=== PATIENT | female | born 1980 | race Caucasian/White ===

== ENCOUNTER 2023-03-22 13:24 | Outpatient (CLI) | payer OTHER, SELFPAY ==
--- NOTE | ~2023-03-22 | MR_ITS ---
EXAMINATION: MR pituitary wo/w con DATE: 03/22/2023 14:30 INDICATION: Hyperprolactinemia. TECHNIQUE: Magnetic resonance imaging (MRI) of the brain and brainstem was performed without and with 15 mL MultiHance intravenous contrast. COMPARISON: None. FINDINGS: The pituitary is normal in size with height of 4 mm and concave superior margin. There is n o intracranial hemorrhage or acute infarction. There are scattered areas of nonspecific increased T2- weighted signal intensity in the cerebral white matter. A lesion in the deep right parietal white mat ter enhances. There is increased T2-weighted signal intensity in the medulla on the right. The ventri cles are normal in size. The orbits are normal. The paranasal sinuses are clear. The mastoid air cell s are normal. IMPRESSION: 1. Normal pituitary. 2. Cerebral white matter lesions (including an enhancing lesion) and brainstem lesion suspicious for multiple sclerosis. The differential diagnosis also includes subacute right parietal infract with whi te matter disease secondary to premature chronic small vessel ischemic disease, drug abuse, or vascul itis. Reviewed, dictated and finalized at location E. IMPRESSION: 1. Normal pituitary. 2. Cerebral white matter lesions (including an enhancing lesion) and brainstem lesion suspicious for multiple sclerosis. The differential diagnosis also inclu griselda subacute right parietal infract with white matter disease secondary to priscilla ature chronic small vessel ischemic disease, drug abuse, or vasculitis.
== END 2023-03-22 13:25 | disposition home or self-care (01) ==
PROVIDERS: PCP Registered Nurse; Visit Provider Internal Medicine
DX: E22.1 Hyperprolactinemia (principal); R90.82 White matter disease, unspecified
CPT/HCPCS: 70553; A9577

== ENCOUNTER 2023-04-20 07:29 | Outpatient (CLI) | payer OTHER, SELFPAY ==
--- NOTE | ~2023-04-20 | MR_ITS ---
EXAMINATION: MR cervical spine wo/w con DATE: 04/20/2023 09:24 INDICATION: Multiple sclerosis. Left-sided numbness. TECHNIQUE: Magnetic resonance imaging (MRI) of the cervical spine was performed without and with 16 m L MultiHance intravenous contrast. COMPARISON: None FINDINGS: There is 2 mm retrolisthesis of C5 on C6. Vertebral body heights are normal. There is moder ately decreased disc height at C5-C6. The spinal cord signal intensity is normal. The following disc levels are specifically discussed: C2-C3: The disc does not extend beyond the endplate margin. There is no uncovertebral joint osteoarth ritis. There is mild bilateral facet joint osteoarthritis. There is no neural foraminal stenosis. The re is no central canal stenosis. C3-C4: There is a right central protrusion. There is no uncovertebral joint osteoarthritis. There is moderate bilateral facet joint osteoarthritis. There is mild left neural foraminal stenosis. There is mild central canal stenosis. C4-C5: The disc is bulging. There is mild bilateral uncovertebral joint osteoarthritis. There is mode rate bilateral facet joint osteoarthritis. There is mild left neural foraminal stenosis. There is mil d central canal stenosis. C5-C6: The disc is bulging. There is severe bilateral uncovertebral joint osteoarthritis. There is mi ld bilateral facet joint osteoarthritis. There is mild bilateral neural foraminal stenosis. There is mild central canal stenosis. C6-C7: The disc does not extend beyond the endplate margin. There is mild left uncovertebral joint os teoarthritis. There is severe bilateral facet joint osteoarthritis. There is mild bilateral neural fo raminal stenosis. There is no central canal stenosis. C7-T1: The disc does not extend beyond the endplate margin. There is no uncovertebral joint osteoarth ritis. There is moderate right and mild left facet joint osteoarthritis. There is no neural foraminal stenosis. There is no central canal stenosis. IMPRESSION: 1. Normal spinal cord. 2. Moderate spondylosis at C5-C6 and mild spondylosis at other levels. Reviewed, dictated and finalized at location A. TANNER
--- NOTE | ~2023-04-20 | MR_ITS ---
EXAMINATION: MR orbits face neck wo/w con DATE: 04/20/2023 09:24 INDICATION: Multiple sclerosis. TECHNIQUE: Magnetic resonance imaging (MRI) of the orbits was performed without and with 16 mL MultiH ance intravenous contrast. COMPARISON: Brain MRI 03/22/2023 FINDINGS: There are greater than 20 total lesions of increased T2-weighted signal intensity in the br ain. Of these lesions, approximately 2 are periventricular, multiple are juxtacortical, and 1 is infr atentorial. None of the lesions enhance. There is no intracranial hemorrhage or acute ischemic infarc t. The ventricles are normal in size. There is mild mucosal thickening in the ethmoid sinuses. The oc ular globes, optic nerves, optic chiasm are normal. The extraocular muscles are normal. IMPRESSION: 1. Normal orbits. 2. Mild nonspecific cerebral white matter disease, stable from 03/22/23. The differential diagnosis includes premature chronic small vessel ischemic disease (especially if the patient has cardiovascula r risk factors), demyelinating disease such as multiple sclerosis, drug abuse, vasculitis, or reactiv e astrocytosis (gliosis) secondary to nonspecific etiology. Reviewed, dictated and finalized at location A. HER TEACHER IMPRESSION: 1. Normal orbits. 2. Mild nonspecific cerebral white matter disease, stable from 03/22/23. The d ifferential diagnosis includes premature chronic small vessel ischemic disease (especially if the patient has cardiovascular risk factors), demyelinating dise ase such as multiple sclerosis, drug abuse, vasculitis, or reactive astrocytosi s (gliosis) secondary to nonspecific etiology.
--- NOTE | ~2023-04-20 | MR_ITS ---
MRI of the thoracic spine Clinical History: Multiple sclerosis Technique: Axial T2-weighted and gradient images, and sagittal T1-weighted, T2-weighted, and STIR emelia ges were acquired. Following intravenous administration of 16 cc MultiHance gadolinium, T1-weighted f at-sat imaging was performed in the axial and sagittal planes. Findings: There is no fracture or subluxation of the thoracic spine. Vertebral bodies maintain normal height and alignment. No suspicious bone marrow signal abnormality seen. No significant disc bulge or herniation seen at any thoracic level. No spinal canal stenosis or cord compression identified. No epidural mass or collection seen. There is a small hyperintense cord lesion on the right side of the cord at the T10-T11 level (series 26 image 33). There is suspected focal associated postcontrast enhancement of this lesion (series 29 image 55). No other spinal cord lesion or abnormal postcontrast enhancement seen. Paravertebral soft tissues are unremarkable. Impression: Single demyelinating plaque in the right side of the cord at T10-T11 level, with probable focal postc ontrast enhancement, consistent with active plaque. Reviewed, dictated and finalized at [facility]. HING MACHINE ENGINEER Impression: Single demyelinating plaque in the right side of the cord at T10-T11 level, wit h probable focal postcontrast enhancement, consistent with active plaque.
== END 2023-04-20 07:30 | disposition home or self-care (01) ==
PROVIDERS: PCP Registered Nurse; Visit Provider Student in an Organized Health Care Education/Training Program
DX: G35 Multiple sclerosis (principal); M47.892 Other spondylosis, cervical region; R90.82 White matter disease, unspecified
CPT/HCPCS: 70543; 72156; 72157; A9577

== ENCOUNTER 2023-04-26 05:41 | Outpatient (CLI) | payer OTHER, SELFPAY ==
[2023-04-17 15:44] VITALS: BMI 32.0
--- NOTE | 2023-04-17 16:04 | SUR.PREOP ---
Pre Radiology instructions Report to the outpatient [facility] on date 0700 at time 04/26/23 for procedure Time: 0900 YOU MAY BE MONITORED AT HOSPITAL FOR UP TO 4 HOURS AFTER YOUR PROCEDURE. A visitor will be allowed to accompany the patient into the hospital. You and your visitor will be asked to self-screen and do not enter if you have any COVID symptoms. A mask is OPTIONAL within the hospital. Patients are to have no food or drink 6 hours prior to procedure time Driving will be restricted after the procedure, you must have a person to drive you home. Labs will be drawn in preop area and once reviewed, you will be taken to radiology area for procedure. When the procedure is completed, you will be taken to outpatient where you will be monitored for several hours. You may have one visitor in this area. Other than holding anti-coagulants, patient may take other medication(s) as scheduled. Prior to your appointment date patients are instructed to hold anti-coagulants after discussing with ordering provider to stop. If unable to discontinue anti-coagulants please notify radiologist. ? No aspirin or warfarin (Coumadin) for 7 days prior to the procedure. ? No clopidogrel (Plavix), ticagrelor (Brilinta), prasugrel (Effient) or dabigatran (Pradaxa) for 5 days prior to the procedure. ? No rivaroxaban (Xarelto), apixaban (Eliquis), dipyridamole (Aggrenox or Persantine) or cilostazol (Pletal) for 2 days prior to the procedure. Medications to discontinue per physician: ____N/A____ Date to take last dose: N/A Please leave all valuables, including medications, at home the day of procedure. The hospital will not accept responsibility for valuables. Wear comfortable, loose fitting clothing.? Follow any additional instructions given to you from ordering provider. Telephone instructions given to VON RUSSO and asked if any additional questions and then verbalized understanding. Patient advised to call scheduling provider office or registration scheduling [phone] if any additional questions.
[2023-04-26] VITALS (7 sets, daily range): BP systolic 108–125; BP diastolic 59–81; PULSE 67–94; RESP 16–20; O2SAT 99–100; BMI 32.6
--- NOTE | ~2023-04-26 | XR_ITS ---
EXAMINATION: XR lumbar puncture diagnostic DATE: 04/26/2023 09:15 INDICATION: Multiples stenosis. TECHNIQUE: The procedure including the risks, benefits, and alternatives was discussed with the patie nt. Risks discussed included spinal headache, cerebrospinal fluid leak, bleeding, and infection. The patient understood the risks and agreed to proceed. A timeout was performed to verify the patient' s name, date of , and procedure to be performed. The skin overlying the L2-L3 level was prepped and draped in usual sterile fashion. Subcutaneous 1% lidocaine was used for local anesthesia. A 20 gauge spinal needle was advanced under fluoroscopic guidance. The needle was removed and the entry s ite was cleaned and dressed. There were no immediate complications. Fluoroscopy exposure time was 0. 1 minutes. The total number of images was 1. FINDINGS: Real-time fluoroscopy demonstrates the needle at the L2-L3 level. The opening pressure was 23 cm water (Normal range is variably defined as 6-20 cm water and up to 25 cm water in obese patient s. Pressure >25 cm water is one of the modified Dandy criteria for idiopathic intracranial hypertensi on). 14 mL of clear, colorless fluid was collected in 4 tubes. IMPRESSION: 1. Successful fluoro-guided lumbar puncture. 2 . Opening pressure of 23 cm water. Reviewed, dictated and finalized at location A. TES GRINDER
[2023-04-26 07:41] LABS: Basophils Absolute Auto 0.1 K/mm3 (0.0-0.1); Basophils Percent Auto 0.7 % (0.2-1.2); Eosinophils Absolute Auto 0.3 K/mm3 (0-0.3); Eosinophils Percent Auto 4.5 % (0-4.4); Hematocrit 39.8 % (37.0-47.0); Hemoglobin 13.6 g/dL (12.0-15.0); Immature Granulocyte Absolute 0.01 K/mm3 (0.00-0.031); Immature Granulocyte Percent A 0.1 % (0-0.5); Lymphocytes Absolute Auto 2.03 K/mm3 (0.9-3.2); Lymphocytes Percent Auto 30.2 % (18.3-44.2); Mean Corpuscular HGB Conc 34.2 g/dl (32-36); Mean Corpuscular Hemoglobin 31.5 pg (26-34); Mean Corpuscular Volume 92.1 fl (80-100); Mean Platelet Volume 8.7 fl (7.4-10.4); Monocytes Absolute Auto 0.5 K/mm3 (0.1-0.6); Monocytes Percent Auto 7.3 % (2.6-8.5); Neutrophils Absolute Auto 3.8 K/mm3 (1.3-6.7); Neutrophils Percent Auto 57.2 % (45.5-73.1); Platelet Count Result 214 k/mm3 (150-375); Red Blood Count 4.32 M/mm3 (4.2-5.4); Red Cell Distribution Width 12.9 % (11.5-14.5); White Blood Count 6.7 K/mm3 (4.5-10.0)
[2023-04-26 08:06] LABS: Prothrombin Time 13.1 Seconds (11.1-14.7)
[2023-04-26 09:47] LABS: Glucose CSF 59 mg/dL (40-70); Total Protein CSF 31 mg/dL (12-60)
[2023-04-26 10:35] LABS: Appearance CSF Clear (Clear); CSF source CSF; Color CSF Colorless (Colorless)
[2023-04-26 10:42] LABS: Lymphocytes CSF 100 % (40-80); Nucleated Cell CSF 1 /uL (0-5); Red Blood Cell CSF 1 (0-2)
[2023-05-02 17:53] LABS: Albumin, CSF 13.5 mg/dL (8.0-42.0); Albumin, Serum 4.2 g/dL (3.6-5.1); IgG Index, CSF 1.43 (<0.70); IgG, CSF 3.5 mg/dL (0.8-7.7); Immunoglobulin G, Serum 763 mg/dL (600-1640); Myelin Basic Protein, CSF <2.0 mcg/L (<=4.0); Oligoclonal Bands (IgG), CSF Present (Absent)
== END 2023-04-26 11:10 | disposition home or self-care (01) ==
PROVIDERS: Radiology Diagnostic Radiology; PCP Registered Nurse; Referring Provider Student in an Organized Health Care Education/Training Program; Visit Provider Radiology Diagnostic Radiology
PROC: 009U3ZZ Drainage of Spinal Canal, Percutaneous Approach (ICD-10-PCS; CPT 62328; principal; 2023-04-26 09:00)
DX: G35 Multiple sclerosis (principal)
CPT/HCPCS: 36415; 62328; 82040; 82042; 82784; 82945; 83873; 83916; 84157; 85025; 85610; 87070; 89051

== ENCOUNTER 2023-05-16 10:54 | Outpatient (CLI) | payer OTHER, SELFPAY ==
--- NOTE | 2023-05-16 11:12 | ECG_ITS ---
Measurements Intervals [place] Rate: 80 P: 72 [place]: 135 QRS: 67 QRSD: 93 T: -5 QT: 328 QTc: 380 Interpretive Statements SINUS RHYTHM NONSPECIFIC ST & T-WAVE ABNORMALITY BORDERLINE ECG NO PREVIOUS ECG AVAILABLE FOR COMPARISON Electronically Signed On 05-16-2023 17:54:05 MUSIC RESEARCHER by Mike Lopez M.D.
[2023-05-16 11:17] LABS: Basophils Percent Auto 0.2 % (0.2-1.2); Eosinophils Percent Auto 0.2 % (0-4.4); Hematocrit 45.2 % (37.0-47.0); Hemoglobin 15.1 g/dL (12.0-15.0); Immature Granulocyte Absolute 0.17 K/mm3 (0.00-0.031); Immature Granulocyte Percent A 1.3 % (0-0.5); Lymphocytes Absolute Auto 1.97 K/mm3 (0.9-3.2); Lymphocytes Percent Auto 15.3 % (18.3-44.2); Mean Corpuscular HGB Conc 33.4 g/dl (32-36); Mean Corpuscular Hemoglobin 31.2 pg (26-34); Mean Corpuscular Volume 93.4 fl (80-100); Mean Platelet Volume 8.5 fl (7.4-10.4); Monocytes Absolute Auto 0.4 K/mm3 (0.1-0.6); Neutrophils Absolute Auto 10.3 K/mm3 (1.3-6.7); Platelet Count Result 242 k/mm3 (150-375); Red Blood Count 4.84 M/mm3 (4.2-5.4); Red Cell Distribution Width 13.3 % (11.5-14.5); White Blood Count 12.9 K/mm3 (4.5-10.0)
[2023-05-16 11:27] LABS: Alanine Aminotransferase 28 U/L (6-35); Albumin Level 4.8 g/dL (3.5-5.1); Alkaline Phosphatase 58 U/L (38-126); Anion Gap 10 mmol/L (8-16); Aspartate Amino Transferase 24 U/L (14-36); Bilirubin,Total 0.5 mg/dL (0.2-1.3); Blood Urea Nitrogen 14 mg/dL (7-17); Calcium 10.2 mg/dL (8.4-10.2); Carbon Dioxide 31 mmol/L (22-30); Chloride 94 mmol/L (98-107); Estimated Glomerular Filt Rate > 60; Glucose 131 mg/dL (65-110); Potassium 4.2 mmol/L (3.4-5.0); Sodium 135 mmol/L (137-145)
[2023-05-22 18:52] LABS: Varicella IgG Antibody >4000.00 Index (>=165.00)
== END 2023-05-16 10:55 | disposition home or self-care (01) ==
PROVIDERS: PCP Registered Nurse; Visit Provider Student in an Organized Health Care Education/Training Program
DX: G35 Multiple sclerosis (principal); R94.31 Abnormal electrocardiogram [ECG] [EKG]
CPT/HCPCS: 36415; 80053; 85025; 86787; 93005

== ENCOUNTER 2023-08-13 14:38 | Outpatient (CLI) | payer OTHER, SELFPAY ==
--- NOTE | ~2023-08-13 | MR_ITS ---
MRI of the brain Clinical History: Multiple sclerosis Technique: Axial and sagittal T1-weighted images were acquired. These were followed by axial T2-weigh julian, diffusion weighted, gradient, and FLAIR images. Sagittal FLAIR images were also performed. Follo wing intravenous administration of 15 cc MultiHance gadolinium, T1-weighted fat-sat imaging was perfo rmed in the axial, coronal, and sagittal planes. COMPARISON: 03/22/2023 Findings: There are several scattered focal hyperintense FLAIR lesions in the periventricular white m atter bilaterally, similar in distribution to prior exam, though somewhat more conspicuous, possibly due to differences in imaging technique. No acute infarct, intracranial hemorrhage, or mass lesion ev ident. Ventricles and subarachnoid spaces are unremarkable. Orbits are unremarkable. Paranasal sinuses and m astoid air cells are clear. Major flow voids are intact. Sagittal midline structures are intact. No abnormal postcontrast enhancement identified. IMPRESSION: Several scattered small focal white matter lesions, stable in distribution from prior exam. Diagnosti c considerations again include multiple sclerosis/demyelinating disease, chronic microvascular ischem ic change, or possibly vasculitis. Clinical correlation required. Reviewed, dictated and finalized at location M. IMPRESSION: Several scattered small focal white matter lesions, stable in distribution from prior exam. Diagnostic considerations again include multiple sclerosis/demyeli nating disease, chronic microvascular ischemic change, or possibly vasculitis. Clinical correlation required.
== END 2023-08-13 14:39 | disposition home or self-care (01) ==
LOC: ANHIMG 14:38
PROVIDERS: PCP Registered Nurse; Visit Provider Student in an Organized Health Care Education/Training Program
DX: G35 Multiple sclerosis (principal); R93.0 Abnormal findings on diagnostic imaging of skull and head, not elsewhere classified
CPT/HCPCS: 70553; A9577

== ENCOUNTER 2023-08-16 08:48 | Outpatient (CLI) | payer OTHER, SELFPAY ==
--- NOTE | ~2023-08-16 | MR_ITS ---
MRI of the thoracic spine Clinical History: Multiple sclerosis Technique: Axial T2-weighted and gradient images, and sagittal T1-weighted, T2-weighted, and STIR emelia ges were acquired. Following intravenous administration of 15 cc MultiHance gadolinium, T1-weighted f at-sat imaging was performed in the axial and sagittal planes. COMPARISON: 04/20/2023 Findings: There is no fracture or subluxation of the thoracic spine. Vertebral bodies maintain normal height and alignment. No bone marrow signal abnormality seen. No disc bulge or herniation seen at any thoracic level. There is no spinal canal stenosis or cord com pression. Possible small hyperintense cord lesion on the right side of the cord at the T10-T11 level. No spinal cord signal abnormality seen. Paravertebral soft tissues are unremarkable. No abnormal postcontrast enhancement. Impression: Possible small right-sided hyperintense cord lesion at T10-T11, which could reflect demyelinating julieth que, versus volume averaging/artifact. No abnormal postcontrast enhancement. Reviewed, dictated and finalized at [facility]. Impression: Possible small right-sided hyperintense cord lesion at T10-T11, which could ref lect demyelinating plaque, versus volume averaging/artifact. No abnormal postcontrast enhancement.
--- NOTE | ~2023-08-16 | MR_ITS ---
MRI of the cervical spine Clinical History: Multiple sclerosis Technique: Axial T2-weighted and gradient images, and sagittal T1-weighted, T2-weighted, and STIR emelia ges were acquired. Following intravenous administration of 15 cc MultiHance gadolinium, T1-weighted f at-sat imaging was performed in the axial and sagittal planes. COMPARISON: 04/20/2023 Findings: No fracture identified. There is 2 mm retrolisthesis of C5 over C6. No suspicious bone patrick ow signal reality seen. At C2-C3 and C3-C4, there is no disc bulge or herniation. No spinal canal stenosis, cord compression, or neural foraminal narrowing at these levels. At C4-C5, there is tiny disc bulge. No spinal canal stenosis, cord compression, or neural foraminal n arrowing. At C5-C6, there is disc osteophyte complex, with minimal canal stenosis and probable bilateral neural foraminal narrowing. At C6-C7, there is no disc bulge or herniation. No spinal canal stenosis, cord compression, or neural foraminal narrowing. No abnormal signal seen in the spinal cord. Paravertebral soft tissues are unremarkable. No abnormal postcontrast enhancement identified. Impression: No abnormal signal in the spinal cord. Mild degenerative spondylosis, as above. Reviewed, dictated and finalized at location . Impression: No abnormal signal in the spinal cord. Mild degenerative spondylosis, as above.
== END 2023-08-16 08:49 | disposition home or self-care (01) ==
PROVIDERS: PCP Registered Nurse; Visit Provider Student in an Organized Health Care Education/Training Program
DX: G35 Multiple sclerosis (principal); M47.892 Other spondylosis, cervical region
CPT/HCPCS: 72156; 72157; A9577

== ENCOUNTER 2023-10-07 07:53 | Outpatient (CLI) | payer OTHER, SELFPAY ==
--- NOTE | ~2023-10-07 | MM_ITS ---
EXAMINATION: MM screening wendy BI w kaur HISTORY: Screening mammogram TECHNIQUE: Craniocaudal and mediolateral oblique 3-D tomosynthesis images were obtained and synthetic 2-D images were generated. CAD analysis was submitted and interpreted. COMPARISON: Baseline examination. No prior mammogram is available for comparison at this institution. BREAST PARENCHYMAL COMPOSITION: There are scattered areas of fibroglandular density. FINDINGS: There is no evidence of suspicious mass, calcification, or architectural distortion to sugg est malignancy in either breast............... IMPRESSION: 1. No mammographic evidence of malignancy. 2. Recommend routine screening mammography in one year. BI-RADS Category 1: Negative Reviewed, dictated and finalized at location A.
== END 2023-10-07 07:54 | disposition home or self-care (01) ==
LOC: ANHIMG 07:57
PROVIDERS: PCP Registered Nurse; Visit Provider Nurse Practitioner
DX: Z12.31 Encounter for screening mammogram for malignant neoplasm of breast (principal)
CPT/HCPCS: 77063; 77067

== ENCOUNTER 2024-06-25 07:51 | Outpatient (CLI) | payer OTHER, SELFPAY ==
--- NOTE | ~2024-06-25 | MR_ITS ---
EXAMINATION: MR cervical spine wo/w con DATE: 06/25/2024 10:01 INDICATION: Surveillance for multiple sclerosis TECHNIQUE: Magnetic resonance imaging (MRI) of the cervical spine was performed without and with 17 m L Multihance intravenous contrast. Sequences included axial PD-weighted FSE-XL, sagittal T1-weighted SE, sagittal PD-weighted FS FRFSE-XL, axial T1-weighted SE, coronal PD-weighted FS FSE-XL, coronal T1 -weighted SE, axial T1-weighted FS SE. Postcontrast sequences included axial T1-weighted FS SE, sagit kayla T1-wegihted FS SE, and sagittal STIR FSE-XL. COMPARISON: None COMPARISON: 06/20/2022 and 08/16/2023 FINDINGS: Straightening of the normal cervical lordosis. 2 mm retrolisthesis C5 on C6. Vertebral body heights are normal. Bone marrow signal intensity is normal. Moderate disc height loss at C5-C6 and mild disc height loss at C3-C4 and C4-C5. There are couple unchanged small foci of subtle increased cord signa l at the right lateral margin of the cord at the level of the C4-C5 disc space and inferior aspect of C5. No no cord lesions or abnormally enhancing lesions identified. The following disc levels are spe cifically discussed: C2-C3: The disc does not extend beyond the endplate margin. There is no uncovertebral joint osteoarth ritis. There is mild bilateral facet joint osteoarthritis. There is no neural foraminal stenosis. The re is no central canal stenosis. C3-C4: Small right central disc protrusion. There is no uncovertebral joint osteoarthritis. There is moderate bilateral facet joint osteoarthritis. There is mild left neural foraminal stenosis. There is minimal central canal stenosis. C4-C5: Disc is mildly bulging. There is mild bilateral uncovertebral joint osteoarthritis. There is b ilateral facet joint osteoarthritis. There is mild left neural foraminal stenosis. There is mild cent ral canal stenosis. C5-C6: Disc is bulging. There is severe bilateral uncovertebral joint osteoarthritis. There is mild b ilateral facet joint osteoarthritis. There is mild to moderate bilateral neural foraminal stenosis. T here is mild central canal stenosis. C6-C7: The disc does not extend beyond the endplate margin. There is mild bilateral uncovertebral judie nt osteoarthritis. There is severe bilateral facet joint osteoarthritis. There is mild bilateral neur al foraminal stenosis. There is no central canal stenosis. C7-T1: The disc does not extend beyond the endplate margin. There is no uncovertebral joint osteoarth ritis. There is mild left and moderate right facet joint osteoarthritis. There is no neural foraminal stenosis. There is no central canal stenosis. IMPRESSION: 1. Stable appearance of a couple chronic small foci of subtle increased T2 signal at the lateral righ t margin of the cord at the level of C4-C5 and C5, likely sequela of chronic multiple sclerosis. No n ew or enhancing cord lesions identified. 2. Moderate spondylosis at C5-C6. Otherwise minimal to mild cervical spondylosis. Reviewed, dictated and finalized at location B. RTRAIN CALIBRATION ENGINEER IMPRESSION: 1. Stable appearance of a couple chronic small foci of subtle increased T2 sign al at the lateral right margin of the cord at the level of C4-C5 and C5, likely sequela of chronic multiple sclerosis. No new or enhancing cord lesions identi fied. 2. Moderate spondylosis at C5-C6. Otherwise minimal to mild cervical spondylosi s.
--- NOTE | ~2024-06-25 | MR_ITS ---
EXAMINATION: MR thoracic spine wo/w con DATE: 06/25/2024 10:01 INDICATION: Multiple sclerosis TECHNIQUE: Magnetic resonance imaging (MRI) of the thoracic spine was performed without and with 17 m L Multihance intravenous contrast. Sagittal localizer T1-weighted FSE of the cervicothoracic spine wa s obtained. Sequences included sagittal T2-weighted FSE, sagittal T2-weighted FS FSE, sagittal T1-uma ghted FSE and axial T1-weighted SE. Postcontrast sequences included axial T2-weighted FSE, sagittal T 1-weighted FS FSE, and axial T1-weighted FS SE. COMPARISON: 08/16/2023 FINDINGS: Alignment is normal.Vertebral body heights are normal.There are mild fibrofatty and fibrovascular deg enerative endplate changes at a few levels in the mid to lower thoracic spine. Moderate disc height l oss at T5-T6 and mild disc height loss david few additional levels in the mid and lower thoracic spine. Mild disc bulge with minimal central canal stenosis at T12-L1. The more cephalad thoracic discs do n ot extend beyond the endplate margins with no central canal stenosis. There is multilevel mild thorac ic facet osteoarthritis. Minimal to mild neural foraminal stenosis at a few levels in the midthoracic spine. Small focus of increased signal at the left central aspect of the cord at the level of T3 se en only on a single axial image. There is otherwise normal spinal cord signal. The conus terminates a t L1. No abnormally enhancing lesions identified either in the cord, spine or surrounding tissues. IMPRESSION: 1. Single small T2 hyperintense focus in the cord at the level of T3 which could be secondary to repo rted multiple sclerosis. 2. Mild thoracic spondylosis. Reviewed, dictated and finalized at location B. CTOR OF OUTREACH IMPRESSION: 1. Single small T2 hyperintense focus in the cord at the level of T3 which coul d be secondary to reported multiple sclerosis. 2. Mild thoracic spondylosis.
--- NOTE | ~2024-06-25 | MR_ITS ---
EXAMINATION: MR brain/brain stem wo/w con DATE: 06/25/2024 10:01 INDICATION: Multiple sclerosis. TECHNIQUE: Magnetic resonance imaging (MRI) of the brain and brainstem was performed without and with 17 mL MultiHance intravenous contrast. COMPARISON: Brain MRI 08/13/2023, 03/22/23 FINDINGS: There are 15-20 total lesions of increased T2-weighted signal intensity in the brain. Of th britney lesions, approximately none are periventricular, multiple are juxtacortical, and one is infratent orial. None of the lesions enhance. There is no acute ischemic infarct or intracranial hemorrhage. Th e ventricles are normal in size. The orbits are normal. The paranasal sinuses are clear. The mastoid air cells are normal. IMPRESSION: 1. Stable mild nonspecific cerebral white matter disease. The differential diagnosis includes prematu re chronic small vessel ischemic disease (especially if the patient has cardiovascular risk factors), demyelinating disease such as multiple sclerosis, drug abuse, vasculitis, or reactive astrocytosis ( gliosis) secondary to nonspecific etiology. Reviewed, dictated and finalized at location A. OM MILLER IMPRESSION: 1. Stable mild nonspecific cerebral white matter disease. The differential diag nosis includes premature chronic small vessel ischemic disease (especially if t he patient has cardiovascular risk factors), demyelinating disease such as mult iple sclerosis, drug abuse, vasculitis, or reactive astrocytosis (gliosis) seco ndary to nonspecific etiology.
--- OUTSIDE RECORDS SUMMARY | 2024-06-25 07:57 | XMS_ITS | Patient Health Summary ---
Author Organization [facility] Address [address] [place] [address] Care Team Providers Care Tubing Mill Setter Name Role Phone Unknown, Provider Primary Care Provider Unavaila ble Note from [facility],non-owned Affiliates and Associated Physician Practices is amultiple site organization consisting of ambulatory clinics and hospital sitesin [place], [place], [place] and [place]. This disclosure is being madepursuant to the Care Everywhere program and may not contain all information available regarding this patient. Last updated 18.[facility] Allergies No known active allergies Medications * Be aware that medications may not be up to date on this document. Alwaysverify current medications with the patient. 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 Pulse 100 09/08/2017 1:56 PM CDT Temperature 36.9 ??C (98.4 ??F) 09/08/2017 1:56 PM CD T Respiratory Rate 17 09/08/2017 1:56 PM CDT Oxygen Saturation 98% 09/08/2017 1:56 PM CDT Inhaled Oxygen Concentration - - Weight 68 kg (150 lb) 09/08/2017 1:56 PM CDT Height 160 cm (5' 3 ) 09/08/2017 1:56 PM CDT Body Mass Index 26.57 09/08/2017 1:56 PM CDT Procedures * STREP A SCREEN - POINT OF CARE (AMB) STL(Performed 09/08/2017) Performed for Strep throat * STREP A SCREEN - POINT OF CARE (AMB) STL(Performed 05/09/2016) Performed for Pharyngitis, streptococcal, acute Results * (ABNORMAL) STREP A SCREEN (09/08/2017) Only the most recent of2 resultswithin the time period is included. Strep A Rapid POCT Positive(A) Negative Strep A Internal Control Present Lot # [id number] Expiration Date 02/14/19 Throat ENTIRE THROAT (SURFACE REGION OF NECK) / Unknown 09/08/2017 Christy Brooks INSULATOR TESTER-MORTGAGE PROCESSING CLERK LAB - POINT OF CA RE ORDERABLES Care Teams Tubing Mill Setter Relationship Specialty Start Date End Date Unknown, Provider PCP - General 05/09/16
--- OUTSIDE RECORDS SUMMARY | 2024-06-25 07:57 | XMS_ITS | Clinical Summary ---
Author Organization [facility] Address [address] [place] [address]. [place], [place] [address] [place] [address] Care Team Providers Care Field Sales Specialist Name Role Phone TracyLázaro chicashanie Belia [facility] Primary Care Provider [phone] [phone] Allergies No known active allergies Medications hydrOXYzine 10 MG tabletIndication s:Generalized anxiety disorder Take 1 tablet (10 mg total) by mouth 3 (three) times daily as needed for Anxiety. 30 tablet 5 2 Active lidocaine (LIDODERM) 5 % Place 1 patch onto the skin as needed. 4 Active modafinil (PROVIGIL) 100 MG tablet Take 0.5 tablets (50 mg total) by mouth daily. 4 Active venlafaxine XR (EFFEXOR-XR) 150 MG 24 hr capsuleIndicatio ns:Generalized anxiety disorder Take 1 capsule (150 mg total) by mouth nightly at bedtime. 90 capsule 1 4 Active tirzepatide-weig ht management (ZEPBOUND) 5 mg/0.5 mL injectionIndicat ions:Weight Loss Inject 5 mg into the skin every 7 days. Indications: Weight Loss 2 mL 2 5 Active cabergoline (DOSTINEX) 0.5 MG tablet 5 Active ondansetron (ZOFRAN) 4 MG tablet Take 1 tablet (4 mg total) by mouth every 6 (six) hours as needed. 4 Active traMADol HCl 100 MG TabIndications:C hronic Pain Take 1 tablet (100 mg total) by mouth every 8 (eight) hours as needed. Indications: Chronic Pain Must last 30 days 90 tablet 5 5 Active lisinopril (PRINIVIL) 20 MG tabletIndication s:Essential hypertension Take 1 tablet (20 mg total) by mouth daily. 90 tablet 1 5 Active indapamide (LOZOL) 2.5 MG tabletIndication s:Essential hypertension Take 1 tablet (2.5 mg total) by mouth daily. 90 tablet 1 5 Active busPIRone (BUSPAR) 10 MG tabletIndication s:Generalized anxiety disorder Take 1 tablet (10 mg total) by mouth 3 (three) times daily. 270 tablet 1 5 Active atorvastatin (LIPITOR) 20 MG tabletIndication s:Elevated lipoprotein(a) Take 1 tablet (20 mg total) by mouth nightly at bedtime. 90 tablet 3 5 Active gabapentin (NEURONTIN) 100 MG capsule Take 1 capsule (100 mg total) by mouth 3 (three) times daily. 4 06/15/19 25 Discontin ued(Thera py completed ) lisinopril (PRINIVIL) 20 MG tabletIndication s:Essential hypertension Take 1 tablet (20 mg total) by mouth daily. 90 tablet 1 4 06/15/19 25 Discontin ued(Reord er) busPIRone (BUSPAR) 10 MG tabletIndication s:Generalized anxiety disorder Take 1 tablet (10 mg total) by mouth 3 (three) times daily. 270 tablet 1 4 06/15/19 25 Discontin ued(Reord er) metFORMIN ER (GLUCOPHAGE-XR) 500 MG 24 hr tabletIndication s:Prediabetes TAKE 1 TABLET(500 MG) BY MOUTH DAILY WITH BREAKFAST 90 tablet 4 06/15/19 25 Discontin ued(Thera py completed ) atorvastatin (LIPITOR) 20 MG tabletIndication s:Elevated lipoprotein(a) TAKE 1 TABLET BY MOUTH EVERY NIGHT AT BEDTIME. 90 tablet 4 06/15/19 25 Discontin ued(Reord er) indapamide (LOZOL) 2.5 MG tabletIndication s:Essential hypertension TAKE 1 TABLET BY MOUTH EVERY DAY 90 tablet 4 06/15/19 25 Discontin ued(Reord er) traMADol 100 MG TabIndications:C hronic Pain Indications: Chronic Pain 1/2-1 tablet po every 8 hours PRN pain, MUST LAST 30 days 90 tablet 1 4 06/08/19 25 Discontin ued(Reord er) traMADol HCl 100 MG TabIndications:C hronic Pain Take 1 tablet (100 mg total) by mouth every 8 (eight) hours as needed. Indications: Chronic Pain Must last 30 days 90 tablet 5 06/15/19 25 Discontin ued(Reord er) Active Problems Problem Noted Date Diagnosed Date Controlled substance agreement signed 06/15/2024 Elevated lipoprotein(a) 06/15/2024 Prediabetes 10/19/2023 Multiple sclerosis ([facility]) 10/19/2023 Pure hypercholesterolemia 10/19/2023 Elevated prolactin level 03/31/2023 Stress incontinence of urine 01/31/2021 Class 1 obesity due to exces s calories with serious comorbidity and body mass index (BMI) of 31.0 to 31.9 in adult 08/09/2018 Tobacco abuse 11/14/2015 Overview (05/28/2018): Date Onset: 11/14/2015 Vitamin D deficiency 12/22/2014 Overview (05/28/2018): Date Onset: 12/08 Carpal tunnel syndrome 09/21/2013 Overview (05/28/2018): Date Onset: 09/21/2013 Anxiety disorder 08/03/2013 Overview (05/28/2018): Date Onset: 08/03/2013 Panic disorder 08/03/2013 Overview (05/28/2018): Date Onset: 08/03/2013 Insomnia 08/03/2013 Overview (05/28/2018): Date Onset: 08/03/2013 Stress 08/03/2013 Overview (05/28/2018): Date Onset: 08/03/2013 Primary hypertension 09/03/2012 Resolved Problems Problem Noted Date Diagnosed Date Resolved Date Colitis 12/04/2022 10/19/2023 Overview (12/04/2022): Added automatically from request for surgery [id number] Ericka-menopause 12/01/2019 03/31/2023 Chronic pain 12/22/2014 08/09/2018 Overview (05/28/2018): Date Onset: 12/22/2014 Hip pain 02/23/2013 08/09/2018 Overview (05/28/2018): Date Onset: 02/23/2013 Backache 09/03/2012 08/09/2018 Encounters Date Type Department Care Team Description 06/16/2024 Telephone Critical access hospital [address] [facility] [address] [place], [place] [id number] Mya Colindres FNP Lab Results 06/15/2024 2:36 PM FUNNEL COATER - 06/15/2024 11:59 PM FUNNEL COATER Hospital Encounter [facility] [address] [facility] [place] [address] Mya Colindres FNP Discharge Disposition: Home or Self Care (Routine Discharge) 06/15/2024 1:40 PM FUNNEL COATER Office Visit [address] [place] [id number] Mya Colindres FNP Medication Management (Med management) 06/15/2024 Travel 06/10/2024 8:00 AM FUNNEL COATER Treatment [facility] [place] [address] Yari Ramos MD 06/10/2024 Travel 06/09/2024 MyChart Message Enc [address] [place] [id number] Mya Colindres FNP Zepbound 06/08/2024 Scan [facility] SRVCS Scanned, Doc [facility] Lab (SCAN) 06/08/2024 MyChart Message Enc [address] [place] [address] Mya Colindres FNP Labs 05/28/2024 MyChart Message Enc [address] [place] [address] Mya Colindres FNP Message 05/22/[address] [place] [address] Mya Colindres FNP Prior Authorization (Tramadol) 05/18/2024 Scan [employer] SRVCS Scanned, Doc Med Group 05/17/2024 MyChart Message Enc [address] [place] [place] [address] Mya Colindres FNP Letter 05/15/2024 Orders Only [facility] [place] [address] Yari Ramos MD 04/30/2024 Orders Only [address] [place] [address] Cat Fang MA 04/21/[address] [address] Mya Colindres FNP Prior Authorization (Tramadol) 04/16/2024 MyChart Message Enc [address] [place] [address] Mya Colindres FNP Meds 04/09/2024 MyChart Message Enc [place] [address] [place] [address] Mya Colindres FNP Tramadol 04/07/2024 3:20 PM FUNNEL COATER Telemedicine [address] [place] [place] [address] Mya Colindres FNP Medication Management 04/07/2024 Travel 04/02/2024 MyChart Message Enc [place] [address] [place] [address] Mya Colindres FNP message 03/25/2024 Scan [facility] INFO SRVCS Scanned, Doc Med Group 03/25/2024 MyChart Message [facility] [address] [facility] [place] [address] Mya Colindres, SENIOR TERADATA DEVELOPER Message from Last 3 Months Family History Medical History Relation Comments Breast Cancer Maternal Grandmother Hypertension Mother colon polyps Mother Relation Status Comments Maternal Grandmother Mother Social History Tobacco Use Types Packs/Day Years Used Date Smoking Tobacco: Former Cigarettes 1 20 0 01/28/2001 - 01/28/2021 Smokeless Tobacco: Never Tobacco Cessation:Counseling Given: No Alcohol Use Standard Drinks/Week Comments Not Currently 0 (1 standard drink = 0.6 oz pur e alcohol) PHQ-2 Answer Date Recorded Patient Health Questionnaire-2 Score 0 06/15/2024 Comments No Sex and Gender Information Value Date Recorded Sex Assigned at Female 06/09/2024 7:56 AM FUNNEL COATER Legal Sex Female 8:06 AM CDT Gender Identity Not on file Sexual Orientation Not on file Last Filed Vital Signs Vital Sign Reading Time Taken Comments Blood Pressure 118/84 06/15/2024 1:29 PM FUNNEL COATER Pulse 97 06/15/2024 1:29 PM FUNNEL COATER Temperature 36.6 ??C (97.8 ??F) 06/15/2024 1:29 PM CS T Respiratory Rate 20 06/10/2024 8:35 AM FUNNEL COATER Oxygen Saturation 97% 06/15/2024 1:29 PM FUNNEL COATER Inhaled Oxygen Concentration - - Weight 78 kg (172 lb) 06/15/2024 1:29 PM FUNNEL COATER Height 157.5 cm (5' 2 ) 06/15/2024 1:29 PM FUNNEL COATER Body Mass Index 31.46 06/15/2024 1:29 PM FUNNEL COATER Plan of Treatment Upcoming Encounters Date Type Department Care Team (Late st Contact Info) Description 11/09/2024 8:00 AM CDT Treatment [facility] [place] [address] None, Provider, Health Maintenance Due Date Last Done Comments Annual Physical 12/19/1982 DTaP, Tdap and Td Vaccines ( 1 - Tdap) 12/19/1998 Hepatitis B Vaccines (1 of 3 - 19+ 3-dose series) 12/19/1998 Cervical Cancer Screening Pa p with HPV Testing (Age 30 to 64) Every 5 Years 12/19/2009 COVID-19 Vaccine (4 - 2023-2 5 season) 2024 10/29/2021, 05/23/2021, 12/05/2020 Influenza Adult (#1) 2024 Mammogram Screening 10/06/2025 10/07/2023 Cervical Cancer Screening Pa p Smear (Age 30 to 64) Every 3 Years 05/28/2026 05/28/2023 Cervical Cancer Screening wi th HPV 05/28/2026 Hepatitis C Completed 01/31/2021 PHQ-2 (Physician [place]) Completed 06/15/2024 HPV Vaccines Aged Out No longer eligi ble based on patient's age to complete this topic Meningococcal B Vaccine Aged Out No l onger eligible based on patient's age to complete this topic Meningococcal Vaccine Aged Out No regan ashish eligible based on patient's age to complete this topic Pneumococcal Vaccine: Pediatrics (0 to 5 Years) and At-Risk Patients (6 to 64 Years) Aged Out No longer eligible b ased on patient's age to complete this topic RSV Immunizations Under 20 Months Aged Out No longer eligible b ased on patient's age to complete this topic Medical Devices Implanted Type Area Buyer Intern Device Identifier Shelf Expiration Date Model / Serial / Lot Clip Resolution 360 Deg 2.8mm X 235cm - [id number] Implanted:Qty: 1 on 02/26/2023 by Chris Monge MD at [facility] Clip Implant Falcon App 02/05/2025 [id number] / / [id number] Procedures Procedure Name Priority Date/Time Associated Diagnosis Comments MG/PCCL UDS SCREEN Routine 06/15/2024 2: 57 PM FUNNEL COATER [facility] (current) use of opiate analgesic HEMOGLOBIN, GLYCOSYLATED Routine 06/15/2024 2:02 PM FUNNEL COATER Prediabetes OUTSIDE LAB (SCAN ORDER) 06/08/2024 OUTSIDE LAB (SCAN ORDER) 06/08/2024 OUTSIDE LAB (SCAN ORDER) 06/08/2024 MAMMOGRAM GENERIC (SCAN ORDER) 10/07/2023 HEPATITIS C RNA W/ REFLX GENOTYPE Routine 01/31/2021 3:00 PM CDT from Last 3 Months or Most Recently Relevant to Health Maintenance Results * (ABNORMAL) MG/PCCL UDS SCREEN (06/15/2024 2:57 PM FUNNEL COATER) FENTANYL SCREEN (U) NEGATIVE <0.5 ng/mL [facility] Comment: See Note A See Note A MORPHINE (U) NEGATIVE <10 ng/mL [facility] Comment: See Note A See Note A AMPHETAMINES PM NEGATIVE <500 ng/mL [facility] Comment: See Note A See Note A BARBITURATES PM (U) NEGATIVE <300 ng/mL [facility] Comment: See Note A See Note A BENZODIAZEPINES PM (U) NEGATIVE <100 ng/mL [facility] Comment: See Note A See Note A COCAINE METABOLITE PM (U) NEGATIVE <150 ng/mL [facility] Comment: See Note A See Note A MARIJUANA METABOLITE PM (U) POSITIVE(A) <20 ng/mL [facility] Comment: See Note A See Note A METHADONE PM (U) NEGATIVE <100 ng/mL [facility] Comment: See Note A See Note A OPIATES PM (U) NEGATIVE <100 ng/mL [facility] Comment: See Note A See Note A OXYCODONE PM (U) NEGATIVE <100 ng/mL [facility] Comment: See Note A See Note A CREATININE RANDOM (U) 36.4 > or = 20.0 mg/dL [facility] pH PM (U) 7.9 4.5 - 9.0 [facility] OXIDANT NEGATIVE <200 mcg/mL [facility] NOTE [facility] Comment: This drug testing is for medical treatment only. Analysis was performed as non-forensic testing and these results should be used only by healthcare providers to render diagnosis or treatment, or to monitor progress of medical conditions. Note A: The results are presumptive; based only on screening methods, and they have not been confirmed by a definitive method. LDT Notes: Confirmation tests were developed and their analytical performance characteristics have been determined by [facility]. It has not been cleared or approved by the FDA. This assay has been validated pursuant to the CLIA regulations and is used for clinical purposes. Healthcare Providers needing Interpretation assistance, please contact us at [phone] ( ) M-F, 8am to 10pm EST URINE SPECIMEN / Unknown 06/15/2024 2:57 PM FUNNEL COATER 06/16/2024 2:52 AM FUNNEL COATER Narrative Resulting Agency Comment Performing Organization Information: ?Site ID: ?Name: [email or web address] ?Address: [address] [place] [id number] ?Director: Armando Aceves ?Site ID: [place] ?Name: [email or web address] ?Address: [address] [place] [address] [place] [address] ?Director: Ghazala Burton MD Mya TORO URINE ORDERABLES Final Re sult [facility] [id number] [place] [id number] [place] [address] * (ABNORMAL) HEMOGLOBIN, GLYCOSYLATED (06/15/2024 2:02 PM FUNNEL COATER) HGB A1C 6.0(H) <5.7 % 06/15/2024 9:36 PM FUNNEL COATER [facility] Comment: ADA GUIDELINES 2010 5.7 TO 6.4% INCREASED RISK OF DIABETES > OR = 6.5% CONSISTENT WITH DIABETES ESTIMATED AVG GLUCOSE 126 mg/dL 06/15/2024 9:36 PM FUNNEL COATER [facility] 06/15/2024 2:02 PM FUNNEL COATER Mya Colindres SENIOR TERADATA DEVELOPER LABORATORY Final Res ult Performing Organization Address [facility] Co de Phone Number [facility] [address] [place] [address], [place] [phone] * OUTSIDE LAB (SCAN ORDER) (06/08/2024) Only the most recent of3 resultswithin the time period is included. 06/08/2024 [facility] Scanned SCANNING Final Resu lt * MAMMOGRAM GENERIC (SCAN ORDER) (10/07/2023) Anatomical Region Laterality Modality Other 10/07/2023 [facility] Scanned SCANNING Final Resu lt * HEPATITIS C RNA W/ REFLX GENOTYPE (01/31/2021 3:00 PM CDT) HEPATITIS C AB NON-REACTIVE NON-REACT NOE [facility] SIGNAL TO CUTOFF 0.01 <1.00 [facility] Comment: HCV antibody was non-reactive. There is no laboratory evidence of HCV infection. In most cases, no further action is required. However, if recent HCV exposure is suspected, a test for HCV RNA (test code 64123) is suggested. For additional information please refer to http://education.[employer] Approach/faq/DPC79v2 (This link is being provided for informational/ educational purposes only.) TAMARA QUIROS DO,MPH THIS TEST WAS PERFORMED AT [facility] [address] [place] [address] HEPATITIS C AB NO [facility] COMMENT Not required [facility] 01/31/2021 3:00 PM CDT 01/31/2021 3:55 PM CDT Mya Colindres [facility] Final Res ult [facility] [place] [address] [place] [address] from Last 3 Months or Most Recently Relevant to Health Maintenance Insurance [employer] Care Teams Field Sales Specialist Relationship Specialty Start Date End Date yMa Colindres FNP [address] [place] [address] [place] [address] PCP - General Nurse Practitioner Family 08/05/18
--- OUTSIDE RECORDS SUMMARY | 2024-06-25 07:57 | XMS_ITS | Encounter Summary ---
Author Organization [facility] Address [address] [place] [address]. [place], [place] [address] [place] [address] Care Team Providers Care Media Strategist Name Role Phone Mya Colindres Belia [facility] Primary Care Provider [phone] Encounter Details Date Type Department Care Team (Late st Contact Info) Description 03/06/2023 Dermal Life Message Enc [facility] Medical Group Multispecialty Care - [facility] [address] [facility] [address] [place] [address] Pam Whitney, CACHORRO [address] [facility] [address] [place] [address] Blood in stiol Social History Tobacco Use Types Packs/Day Years Used Date Smoking Tobacco: Some Days Cigarettes 1 20 Started: 01/28/2001; Last attempted to quit: 01/28/2021 Smokeless Tobacco: Never Alcohol Use Standard Drinks/Week Comments Not Currently 0 (1 standard drink = 0.6 oz pur e alcohol) PHQ-2 Answer Date Recorded Patient Health Questionnaire-2 Score 0 08/13/2022 Comments No Sex and Gender Information Value Date Recorded Sex Assigned at Female 06/09/2024 7:56 AM SALES TEACHER Legal Sex Female 8:06 AM CDT Gender Identity Not on file Sexual Orientation Not on file documented as of this encounter Plan of Treatment Upcoming Encounters Date Type Department Care Team (Late st Contact Info) Description 11/09/2024 8:00 AM CDT Treatment [facility] [address] [place] [address] None, Provider, documented as of this encounter Visit Diagnoses Not on filedocumented in this encounter Additional Health Concerns Assessment Noted Time PHQ-9 Depression Total Score: 1 08/14/19 23 9:40 AM CDT documented as of this encounter Care Teams Media Strategist Relationship Specialty Start Date End Date Mya Colindres FNP [address] [place] [address] [place] [address] PCP - General Nurse Practitioner Family 08/05/18 documented as of this encounter
--- OUTSIDE RECORDS SUMMARY | 2024-06-25 07:57 | XMS_ITS | Encounter Summary ---
Author Organization [facility] Address [address] [place] [address] Care Team Providers Care Casino Beverage Server Name Role Phone Unavailable Primary Care Provider Unavailabl e Encounter Details Date Type Department Care Team (Latest Contact Info) Description 11/03/2003 Inpatient Historical HIS [place] [address] [place] [address] ABNORMAL VULVA-DELIVERED (Primary Dx) Social History Tobacco Use Types Packs/Day Years Used Date Smoking Tobacco: Never Assessed Comments Unknown Sex and Gender Information Value Date Recorded Sex Assigned at Not on file Legal Sex Female 3:06 AM ADJUNCT PHLEBOTOMY INSTRUCTOR Gender Identity Not on file Sexual Orientation Not on file documented as of this encounter Plan of Treatment Not on file documented as of this encounter Visit Diagnoses Diagnosis Congenital or acquired abnormality of vulva, with delivery- Primary documented in this encounter
--- OUTSIDE RECORDS SUMMARY | 2024-06-25 07:57 | XMS_ITS | Encounter Summary ---
Author Organization [facility] Address [address] [place] [address]. [place], [place] [id number] [place] [address] Care Team Providers Care Metal Coater Name Role Phone Mya Colindres [facility] Primary Care Provider [phone] Encounter Details Date Type Department Care Team (Late st Contact Info) Description 02/13/2023 MyChart Message Enc Critical access hospital [address] [place] [id number] Mya Colindres [facility] [address] [place], [place] [id number] Prolactin levels Social History Tobacco Use Types Packs/Day Years [...] Sex Assigned at Female 06/09/2024 7:56 AM EXTRUDER OPERATOR HELPER Legal Sex Female 8:06 AM CDT Gender Identity Not on file Sexual Orientation Not on file documented as of this encounter Plan of Treatment Upcoming Encounters Date Type Department Care Team (Late st Contact Info) Description 11/09/2024 8:00 AM CDT Treatment [facility] [place] [address] None, Provider, documented as of this encounter Visit Diagnoses Not on filedocumented in this encounter Additional Health Concerns Assessment Noted Time PHQ-9 Depression Total Score: 1 08/14/19 23 9:40 AM CDT documented as of this encounter Care Teams Metal Coater Relationship Specialty Start Date End Date Mya Colindres FNP [address] [place] [address] [place] [address] PCP - General Nurse Practitioner Family 08/05/18 documented as of this encounter
--- OUTSIDE RECORDS SUMMARY | 2024-06-25 07:57 | XMS_ITS | Encounter Summary ---
Author Organization [facility] Address [address] [place] [address]. [place], [place] [address] [place] [address] Care Team Providers Care Care Services Manager Name Role Phone Mya Colindres [facility] Primary Care Provider [phone] Encounter Details Date Type Department Care Team (Late st Contact Info) Description 12/01/2022 MyChart Message Enc [facility] [address] [place] [id number] Mya Colindres, [facility] [address] [place], [place] [id number] Trulicity increase Social History Tobacco Use Types Packs/Day Years [...] Sex Assigned at Female 06/09/2024 7:56 AM MINI BACCARAT DEALER Legal Sex Female 8:06 AM CDT Gender Identity Not on file Sexual Orientation Not on file documented as of this encounter Plan of Treatment Upcoming Encounters Date Type Department Care Team (Late st Contact Info) Description 11/09/2024 8:00 AM CDT Treatment [facility] [place] [address] None, Provider, documented as of this encounter Visit Diagnoses Not on filedocumented in this encounter Additional Health Concerns Assessment Noted Time PHQ-9 Depression Total Score: 1 08/14/19 23 9:40 AM CDT documented as of this encounter Care Teams Care Services Manager Relationship Specialty Start Date End Date Mya Colindres FNP [address] [place] [address] [place] [address] PCP - General Nurse Practitioner Family 08/05/18 documented as of this encounter
--- OUTSIDE RECORDS SUMMARY | 2024-06-25 07:57 | XMS_ITS | Encounter Summary ---
Author Organization [facility] Address [address] [place] [address]. [place], [place] [address] [place] [address] Care Team Providers Care Boots And Shoes Supervisor Name Role Phone Mya Colindres Belia [facility] Primary Care Provider [phone] Encounter Details Date Type Department Care Team (Late st Contact Info) Description 02/28/2023 [employer] Message Enc [facility] Medical Group Family & Internal Medicine [address] [address] [place], [facility] Provider Screening Social History Tobacco Use Types Packs/Day Years [...] Sex Assigned at Female 06/09/2024 7:56 AM SOUND EFFECTS TECHNICIAN Legal Sex Female 8:06 AM CDT Gender Identity Not on file Sexual Orientation Not on file documented as of this encounter Plan of Treatment Upcoming Encounters Date Type Department Care Team (Late st Contact Info) Description 11/09/2024 8:00 AM CDT Treatment [facility] [place] [address] None, Provider, documented as of this encounter Visit Diagnoses Not on filedocumented in this encounter Additional Health Concerns Assessment Noted Time PHQ-9 Depression Total Score: 1 08/14/19 23 9:40 AM CDT documented as of this encounter Care Teams Boots And Shoes Supervisor Relationship Specialty Start Date End Date Mya Colindres FNP [address] [place] [address] [place] [address] PCP - General Nurse Practitioner Family 08/05/18 documented as of this encounter
--- OUTSIDE RECORDS SUMMARY | 2024-06-25 07:57 | XMS_ITS | Encounter Summary ---
Author Organization [facility] Address [address] [place] [address] Care Team Providers Care Ophthalmic Medical Technologist Name Role Phone Unavailable Primary Care Provider Unavailabl e Encounter Details Date Type Department Care Team (Latest Contact Info) Description 11/01/[address]patient [address] [facility] [place] [address] [place] [address] PREG COMPL NEC-ANTEPART (Primary Dx) Social History Tobacco Use Types Packs/Day Years Used Date Smoking Tobacco: Never Assessed Comments Unknown Sex and Gender Information Value Date Recorded Sex Assigned at Not on file Legal Sex Female 3:06 AM PRICING/SIGNAGE TEAM MEMBER Gender Identity Not on file Sexual Orientation Not on file documented as of this encounter Plan of Treatment Not on file documented as of this encounter Visit Diagnoses Diagnosis Other specified complication, antepartum(646.83)- Primary Other specified complication, antepartum documented in this encounter
--- OUTSIDE RECORDS SUMMARY | 2024-06-25 07:57 | XMS_ITS | Encounter Summary ---
Author Organization [facility] Address [address] [place] [address] Care Team Providers Care Clinic Coordinator Name Role Phone Unavailable Primary Care Provider Unavailabl e Encounter Details Date Type Department Care Team (Late st Contact Info) Description 12/03/2003 Outpatient Historical [facility] [place] [address] [place] [address] Social History Tobacco Use Types Packs/Day Years Used Date Smoking Tobacco: Never Assessed Comments Unknown Sex and Gender Information Value Date Recorded Sex Assigned at Not on file Legal Sex Female 3:06 AM SVP D[employer] SAL[employer] Gender Identity Not on file Sexual Orientation Not on file documented as of this encounter Plan of Treatment Not on file documented as of this encounter Visit Diagnoses Not on filedocumented in this encounter
--- OUTSIDE RECORDS SUMMARY | 2024-06-25 07:58 | XMS_ITS | Encounter Summary ---
Author Organization [facility] Address [address] [place] [address]. [place], [place] [address] [place] [address] Care Team Providers Care Natural Science Manager Name Role Phone Mya Colindres [facility] Primary Care Provider [phone] [phone] Encounter Details Date Type Department Care Team (Late st Contact Info) Description 08/27/2022 MyChart Message Enc [facility] [address] [place] [address] Mya Colindres [facility] [address] [place], [place] [id number] Hospital discharge cont. Social History Tobacco Use Types Packs/Day Years Used Date Smoking Tobacco: Some Days Cigarettes 1 20 Started: 01/28/2001; Last attempted to quit: 01/28/2021 Smokeless Tobacco: Never PHQ-2 Answer Date Recorded Patient Health Questionnaire-2 Score 0 08/13/2022 Comments No Sex and Gender Information Value Date Recorded Sex Assigned at Female 06/09/2024 7:56 AM TAX REPRESENTATIVE Legal Sex Female 8:06 AM CDT Gender Identity Not on file Sexual Orientation Not on file COVID-19 Exposure Response Date Recorded In the last 10 days, have yo u been in contact with someone who was confirmed or suspected to have Coronavirus/COVID-19? No / Unsure 08/13/2022 9:35 AM CDT documented as of this encounter Plan of Treatment Upcoming Encounters Date Type Department Care Team (Late st Contact Info) Description 11/09/2024 8:00 AM CDT Treatment [facility] Infusion Services at [facility] [place] [address] None, Provider, documented as of this encounter Visit Diagnoses Not on filedocumented in this encounter Additional Health Concerns Assessment Noted Time PHQ-9 Depression Total Score: 1 08/14/19 23 9:40 AM CDT documented as of this encounter Care Teams Natural Science Manager Relationship Specialty Start Date End Date Mya Colindres FNP [address] [place] [address] [place] [address] PCP - General Nurse Practitioner Family 08/05/18 documented as of this encounter
--- OUTSIDE RECORDS SUMMARY | 2024-06-25 07:58 | XMS_ITS | Encounter Summary ---
Author Organization [facility] Address [address] [place] [address]. [place], [place] [address] [place] [address] Care Team Providers Care Video Intern Name Role Phone Mya Colindres [facility] Primary Care Provider +1 [phone] Encounter Details Date Type Department Care Team (Late st Contact Info) Description 08/27/2022 MyChart Message Enc [facility] [address] [place] [address] Mya Colindres [facility] [address] [place], [place] [id number] Hospital Discharge lab etc Social History Tobacco Use Types Packs/Day Years Used Date Smoking Tobacco: Some Days Cigarettes 1 20 Started: 01/28/2001; Last attempted to quit: 01/28/2021 Smokeless Tobacco: Never PHQ-2 Answer Date Recorded Patient Health Questionnaire-2 Score 0 08/13/2022 Comments No Sex and Gender Information Value Date Recorded Sex Assigned at Female 06/09/2024 7:56 AM DEICER INSPECTOR PNEUMATIC Legal Sex Female 8:06 AM CDT Gender [...] Info) Description 11/09/2024 8:00 AM CDT Treatment [facility] Infusion Services at [facility] [place] [address] None, Provider, documented as of this encounter Visit Diagnoses Not on filedocumented in this encounter Additional Health Concerns Assessment Noted Time PHQ-9 Depression Total Score: 1 08/14/19 23 9:40 AM CDT documented as of this encounter Care Teams Video Intern Relationship Specialty Start Date End Date Mya Colindres FNP [address] [place] [address] [place] [address] PCP - General Nurse Practitioner Family 08/05/18 documented as of this encounter
--- OUTSIDE RECORDS SUMMARY | 2024-06-25 07:58 | XMS_ITS | Encounter Summary ---
Author Organization [facility] Address [address] [place] [address]. [place], [place] [address] [place] [address] Care Team Providers Care Oracle Ebs Developer Name Role Phone Mya Colindres [facility] Primary Care Provider [phone] [phone] Reason for Visit * Reason Onset Date Comments Medication Request 04/16/2024 Encounter Details Date Type Department Care Team (Late st Contact Info) Description 04/16/2024 FuelMiner Message Enc [facility] [address] [place] [address] Mya Colindres, [facility] [address] [place] [address] Meds Social History Tobacco Use Types Packs/Day Years Used Date Smoking Tobacco: Former Cigarettes 1 20 0 01/28/2001 - 01/28/2021 Smokeless Tobacco: Never Alcohol Use Standard Drinks/Week Comments Not Currently 0 (1 standard drink = 0.6 oz pur e alcohol) PHQ-2 Answer Date Recorded Patient Health Questionnaire-2 Score 0 04/07/2024 Comments No Sex and Gender Information Value Date Recorded Sex Assigned at Female 06/09/2024 7:56 AM LEGAL RESEARCH ANALYST Legal Sex Female 8:06 AM CDT Gender Identity Not on file Sexual Orientation Not on file documented as of this encounter Progress Notes * Linda Grant LPN - 04/16/2024 1:46 PM CST Please review. L RESEARCH ANALYST * Mara Purvis 04/16/2024 12:36 PM CST Patient called and stated [facility] just got it [facility]. L RESEARCH ANALYST * Linda Grant LPN - 04/16/2024 11:15 AM CST Pt. Sent [facility] message back stating that [facility] has the 100mg tab. In stock. Med. Just needs resent. L RESEARCH ANALYST * Linda Grant LPN - 04/16/2024 9:31 AM CST Possibly change order to Tramadol 50mg 1-2 tabs. And directions you wish pt. To have? L RESEARCH ANALYST * Linda Grant LPN - 04/16/2024 9:30 AM CST Please review/advise. L RESEARCH ANALYST documented in this encounter Plan of Treatment Upcoming Encounters Date Type Department Care Team (Late st Contact Info) Description 11/09/2024 8:00 AM CDT Treatment [facility] [place] [address] None, Provider, documented as of this encounter Visit Diagnoses Not on filedocumented in this encounter Additional Health Concerns Assessment Noted Time PHQ-9 Depression Total Score: 0 03/29/20 23 1:34 PM CDT documented as of this encounter Care Teams Oracle Ebs Developer Relationship Specialty Start Date End Date Mya Colindres FNP [address] [place] [address] [place] [address] PCP - General Nurse Practitioner Family 08/05/18 documented as of this encounter
--- OUTSIDE RECORDS SUMMARY | 2024-06-25 07:58 | XMS_ITS | Referral Summary ---
Author Organization [facility] Address [address] [place] [address] Care Team Providers Care Cash Sales Audit Clerk Name Role Phone Unknown, Provider Primary Care Provider Unavaila ble Source Comments [facility],non-owned Affiliates and Associated Physician Practices is amultiple site organization consisting of ambulatory clinics and hospital sitesin [place], [place], [place] and [place]. This disclosure is being madepursuant to the Care Everywhere program and may not contain all information available regarding this patient. Last updated 18.[employer] [facility] Allergies No known active allergies Medications * Be aware that medications may not be up to date on this document. Alwaysverify current medications with the patient. Medication Sig Dispensed Refills Start Date End Date Status buPROPion XL 24hr (WELLBUTRIN XL) 150 MG tablet Take 150 mg by mouth once daily Active Social History Tobacco Use Types Packs/Day Years Used Date Smoking Tobacco: Every Day Smokeless Tobacco: Never Sex and Gender Information Value Date Recorded Sex Assigned at Not on file Gender Identity Not on file Sexual Orientation Not on file Last Filed Vital Signs Vital Sign Reading Time Taken Comments Blood Pressure 110/72 05/09/2016 4:25 PM CYBER INCIDENT RESPONDER Pulse 100 09/08/2017 1:56 PM CDT Temperature 36.9 ??C (98.4 ??F) 09/08/2017 1:56 PM CD T Respiratory Rate 17 09/08/2017 1:56 PM CDT Oxygen Saturation 98% 09/08/2017 1:56 PM CDT Inhaled Oxygen Concentration - - Weight 68 kg (150 lb) 09/08/2017 1:56 PM CDT Height 160 cm (5' 3 ) 09/08/2017 1:56 PM CDT Body Mass Index 26.57 09/08/2017 1:56 PM CDT Plan of Treatment Not on file Care Teams Cash Sales Audit Clerk Relationship Specialty Start Date End Date Unknown, Provider PCP - General 05/09/16
--- OUTSIDE RECORDS SUMMARY | 2024-06-25 07:58 | XMS_ITS | CONTINUITY OF CARE DOCUMENT ---
Author Name dominick tan Address Unknown Organization [facility] Address [address] [place] [address] Phone [phone] Care Team Providers Care Rn Acute Name Role Phone dominick tan Unavailable Unavailable INSURANCE PROVIDERS Payer name Policy type / Coverage type Ella red democrat [employer] Medicaid 1 [id number]
--- OUTSIDE RECORDS SUMMARY | 2024-06-25 07:58 | XMS_ITS | Clinical Summary ---
Author Organization [facility] Address [address] [place] [address] Care Team Providers Care Wind Energy Mechanic Name Role Phone Mya Colindres NP Primary Care Provider [phone] Allergies No known active allergies Medications oxyCODONE (ROXICODONE) 5 mg immediate release tabletIndication s:Pain Take 1 tablet (5 mg total) by mouth every 4 (four) hours as needed for pain for up to 6 doses 6 tablet 09/16/2023 Active Medical History Medical History Date Comments Multiple sclerosis (HCC) Social History Tobacco Use Types Packs/Day Years Used Date Smoking Tobacco: Never Assessed Personal Safety Answer Date Recorded Have you ever been in or are you currently in a harmful physical or emotional relationship or is someone making you feel afraid or unsafe? Denies 09/16/2023 Comments No Sex and Gender Information Value Date Recorded Sex Assigned at Not on file Legal Sex Female 2:51 PM SPORTS MEDIA Gender Identity Not on file Sexual Orientation Not on file Obstetrics History Last Filed Vital Signs Vital Sign Reading Time Taken Comments Blood Pressure 122/94 09/16/2023 12:50 PM CDT Pulse 100 09/16/2023 12:50 PM CDT Temperature 36.8 ??C (98.2 ??F) 09/16/2023 11:02 AM C DT Respiratory Rate 18 09/16/2023 12:50 PM CDT Oxygen Saturation 100% 09/16/2023 12:50 PM CDT Inhaled Oxygen Concentration - - Weight 83 kg (183 lb) 09/16/2023 11:02 AM CDT Height 157.5 cm (5' 2 ) 09/16/2023 11:02 AM CDT Body Mass Index 33.47 09/16/2023 11:02 AM CDT Plan of Treatment Health Maintenance Due Date Last Done Comments Breast Cancer Screening-Mammogram 1979 Cervical Cancer Screening 1979 Depression Screening 1979 Hepatitis C Screening 1979 DTaP/Tdap/Td Vaccine (1 - Tdap) 12/19/1990 Varicella Vaccines (1 of 2 - 13+ 2-dose series) 12/19/1992 Hepatitis B Screening 12/19/1997 Regular Well Visit/Exam 18-64 12/19/1997 Covid-19 Vaccine (4 - 2023-2 5 season) 2024 10/29/2021, 05/23/2021, 12/05/2020 Influenza Vaccine (#1) 2024 HPV Vaccines Aged Out No longer eligi ble based on patient's age to complete this topic Pneumococcal vaccine <65 Aged Out No longer eligible based on patient's age to complete this topic Insurance [address] Care Teams Wind Energy Mechanic Relationship Specialty Start Date End Date Mya Colindres NP [address] [place] [address] [place] [address] PCP - General Family Practice 05/14/23
--- OUTSIDE RECORDS SUMMARY | 2024-06-25 07:58 | XMS_ITS | Clinical Summary ---
Author Organization [facility] Address [address] Attn: Epic Prelude ADT [place] [address] Care Team Providers Care Vacuum Tank Tender Name Role Phone Unavailable Primary Care Provider Unavailabl e Social History Tobacco Use Types Packs/Day Years Used Date Smoking Tobacco: Never Assessed Comments Unknown Sex and Gender Information Value Date Recorded Sex Assigned at Not on file Legal Sex Female 3:06 AM TELEVISION CABLE INSTALLER Gender Identity Not on file Sexual Orientation Not on file Plan of Treatment Health Maintenance Due Date Last Done Comments DTAP/TDAP/TD VACCINES (1 - Tdap) 12/19/1998 HEPATITIS B VACCINES (1 of 3 - 19+ 3-dose series) 12/19/1998 CERVICAL CANCER SCREENING 12/19/2009 BREAST CANCER SCREENING 2019 INFLUENZA VACCINE (#1) 2023 HPV VACCINES Aged Out No longer eligi ble based on patient's age to complete this topic
--- OUTSIDE RECORDS SUMMARY | 2024-06-25 07:58 | XMS_ITS | Referral Summary ---
Author Organization [facility] Address [address] [place] [address] Care Team Providers Care Pharmaceutical Sales Specialist Name Role Phone Mya Colindres NP Primary Care Provider [phone] [phone] Allergies No known active allergies Medications oxyCODONE (ROXICODONE) 5 mg immediate release tabletIndication s:Pain Take 1 tablet (5 mg total) by mouth every 4 (four) hours as needed for pain for up to 6 doses 6 tablet 09/16/2023 Active Social History Tobacco Use Types Packs/Day [...] on file Legal Sex Female 2:51 PM TOOL SETTER Gender Identity Not on file Sexual Orientation [...] 09/16/2023 11:02 AM CDT Plan of Treatment Not on file Insurance Care Teams Pharmaceutical Sales Specialist Relationship Specialty Start Date End Date Mya Colindres NP [address] [place] [address] [place] [address] PCP - General Family Practice 05/14/23
--- OUTSIDE RECORDS SUMMARY | 2024-06-25 07:58 | XMS_ITS | Encounter Summary ---
Author Organization [facility] Address [address] [place] [address]. [place], [place] [address] [place] [address] Care Team Providers Care Quartz Mounter Name Role Phone Mya Colindres [facility] Primary Care Provider [phone] [phone] Encounter Details Date Type Department Care Team (Late st Contact Info) Description 09/26/2023 Mydisht Message Enc [facility] [address] [place], [place] [id number] Mya Colindres [facility] [address] [place], [place] [id number] referral Social History Tobacco Use Types Packs/Day Years Used Date Smoking Tobacco: Some Days Cigarettes 1 20 Started: 01/28/2001; Last attempted to quit: 01/28/2021 Smokeless Tobacco: Never Alcohol Use Standard Drinks/Week Comments Not Currently 0 (1 standard drink = 0.6 oz pur e alcohol) PHQ-2 Answer Date Recorded Patient Health Questionnaire-2 Score 0 03/29/2023 Comments No Sex and Gender Information Value Date Recorded Sex Assigned at Female 06/09/2024 7:56 AM HEALTH SCREENER Legal Sex Female 8:06 AM CDT Gender Identity Not on file Sexual Orientation Not on file documented as of this encounter Progress Notes * Maya Estrada RN - 09/26/2023 3:29 PM CDT See my chart message documented in this encounter Plan of Treatment Upcoming Encounters Date Type Department Care Team (Late st Contact Info) Description 11/09/2024 8:00 AM CDT Treatment [facility] [place] [address] None, Provider, documented as of this encounter Visit Diagnoses Not on filedocumented in this encounter Additional Health Concerns Assessment Noted Time PHQ-9 Depression Total Score: 0 03/29/20 23 1:34 PM CDT documented as of this encounter Care Teams Quartz Mounter Relationship Specialty Start Date End Date Mya Colindres FNP [address] [place] [address] [address] [place] [id number] PCP - General Nurse Practitioner Family 08/05/18 documented as of this encounter
--- OUTSIDE RECORDS SUMMARY | 2024-06-25 07:58 | XMS_ITS | Encounter Summary ---
Author Organization [facility] Address [address] [place] [address]. [place], [place] [address] [place] [address] Care Team Providers Care Thermostat Machine Tender Name Role Phone Mya ColindresP Primary Care Provider [phone] [phone] Reason for Visit * Reason Onset Date Comments Medication Problem 02/14/2024 Encounter Details Date Type Department Care Team (Late st Contact Info) Description 02/14/2024 Your Energy Message Enc [facility] [address] [place] [address] Mya Colindres [facility] [address] [place] [address] Switching Social History Tobacco Use Types Packs/Day Years [...] Sex Assigned at Female 06/09/2024 7:56 AM JIG BORING MACHINE OPERATOR FOR METAL Legal Sex Female 8:06 AM CDT Gender Identity Not on file Sexual Orientation Not on file documented as of this encounter Progress Notes * CORTEZ Pop - 02/14/2024 3:46 PM CDT All pain medications we use have dependency as a risk. So aside from tylenol and ibuprofen I don't have other options. I can wean her off of tramadol, how much and how often is she taking it? * Mara Pickens - 02/14/2024 2:42 PM CDT Medication makes patient feel sick, and is there anything else she can take. Patient will have Rainey again after 02/25/24. And come in if needed after that. documented in this encounter Plan of Treatment Upcoming Encounters Date Type Department Care Team (Late st Contact Info) Description 11/09/2024 8:00 AM CDT Treatment [facility] [place] [address] None, Provider, documented as of this encounter Visit Diagnoses Not on filedocumented in this encounter Additional Health Concerns Assessment Noted Time PHQ-9 Depression Total Score: 0 03/29/20 23 1:34 PM CDT documented as of this encounter Care Teams Thermostat Machine Tender Relationship Specialty Start Date End Date Mya Colindres FNP [address] [place] [address] [place] [address] PCP - General Nurse Practitioner Family 08/05/18 documented as of this encounter
--- OUTSIDE RECORDS SUMMARY | 2024-06-25 07:58 | XMS_ITS | Encounter Summary ---
Author Organization [facility] Address [address] [place] [address]. [place], [place] [address] [place] [address] Care Team Providers Care Biology Department Chair Name Role Phone TracyMya chicas Belia [facility] Primary Care Provider [phone] [phone] Encounter Details Date Type Department Care Team (Late st Contact Info) Description 11/05/2023 Therapy Plan [facility] [place] [address] Mayte Carpio MD [address] [address] [address] [place] [address] Social History Tobacco Use Types Packs/Day Years [...] Sex Assigned at Female 06/09/2024 7:56 AM RUBBER CALENDER HELPER Legal Sex Female 8:06 AM CDT Gender Identity Not on file Sexual Orientation Not on file documented as of this encounter Plan of Treatment Upcoming Encounters Date Type Department Care Team (Late st Contact Info) Description 11/09/2024 8:00 AM CDT Treatment [facility] Infusion Services at [facility] [place] [address] None, Provider, MD documented as of this encounter Visit Diagnoses Diagnosis Multiple sclerosis (CMS/HCC HHS/HCC)- Primary Multiple sclerosis documented in this encounter Additional Health Concerns Assessment Noted Time PHQ-9 Depression Total Score: 0 03/29/20 23 1:34 PM CDT documented as of this encounter Care Teams Biology Department Chair Relationship Specialty Start Date End Date Mya Colindres FNP [address] [place] [address] [place] [address] PCP - General Nurse Practitioner Family 08/05/18 documented as of this encounter
--- OUTSIDE RECORDS SUMMARY | 2024-06-25 07:58 | XMS_ITS | Clinical Summary ---
Author Organization [facility] Address [address] [place] [address] Care Team Providers Care Yarder Engineer Name Role Phone Unknown, Provider Primary Care Provider Unavaila ble Source Comments [facility]non-owned Affiliates and Associated Physician Practices is amultiple site organization consisting of ambulatory clinics and hospital sitesin [place], [place], [place] and [place]. This disclosure is being madepursuant to the Care Everywhere program and may not contain all information available regarding this patient. Last updated 18.[employer] [facility] Allergies No known active allergies Medications * [...] Comments Blood Pressure 110/72 05/09/2016 4:25 PM FISHING REEL ASSEMBLER Pulse 100 09/08/2017 1:56 PM CDT Temperature [...] 09/08/2017 1:56 PM CDT Plan of Treatment Health Maintenance Due Date Last Done Comments LIPID TESTING 1979 MAMMOGRAM 1979 PAP SMEAR 1979 HIV SCREENING 12/19/1994 HEPATITIS C SCREENING 12/15/1997 DTAP/TDAP/TD VACCINES (1 - Tdap) 12/19/1998 HEPATITIS B VACCINE (1 of 3 - 19+ 3-dose series) 12/19/1998 PNEUMOCOCCAL VACCINE (1 of 2 - PCV) 12/19/1998 COVID-19 VACCINE (1 - 2023-2 5 season) 2024 INFLUENZA VACCINE (#1) 2024 DEPRESSION SCREENING 05/27/2024 ZOSTER VACCINE (1 of 2) 12/19/2029 HIB VACCINE Aged Out No longer eligi ble based on patient's age to complete this topic HPV VACCINE Aged Out No longer eligi ble based on patient's age to complete this topic MENINGOCOCCAL (Group B) VACCINE Aged Out No longer eligible based on patient's age to complete this topic MENINGOCOCCAL VACCINE Aged Out No regan ashish eligible based on patient's age to complete this topic Care Teams Yarder Engineer Relationship Specialty Start Date End Date Unknown, Provider PCP - General 05/09/16
--- OUTSIDE RECORDS SUMMARY | 2024-06-25 07:58 | XMS_ITS | Encounter Summary ---
Author Organization [facility] Address [address] [place] [address]. [place], [place] [id number] [place] [address] Care Team Providers Care Forming Acid Dumper Name Role Phone Mya Colindres [facility] Primary Care Provider [phone] Encounter Details Date Type Department Care Team (Late st Contact Info) Description 08/27/2022 MyChart Message Enc [facility] [address] [place] [address] Mya Colindres [facility] [address] [place], [place] [phone] Hospital stay Social History Tobacco Use Types Packs/Day Years Used Date Smoking Tobacco: Some Days Cigarettes 1 20 Started: 01/28/2001; Last attempted to quit: 01/28/2021 Smokeless Tobacco: Never PHQ-2 Answer Date Recorded Patient Health Questionnaire-2 Score 0 08/13/2022 Comments No Sex and Gender Information Value Date Recorded Sex Assigned at Female 06/09/2024 7:56 AM CILNICAL SCIENTIST Legal Sex Female 8:06 AM CDT Gender [...] Info) Description 11/09/2024 8:00 AM CDT Treatment [facility] Services at [facility] [place] [address] None, Provider, documented as of this encounter Visit Diagnoses Not on filedocumented in this encounter Additional Health Concerns Assessment Noted Time PHQ-9 Depression Total Score: 1 08/14/19 23 9:40 AM CDT documented as of this encounter Care Teams Forming Acid Dumper Relationship Specialty Start Date End Date Mya Colindres FNP [address] [place] [address] [address] [place], [place] [id number] PCP - General Nurse Practitioner Family 08/05/18 documented as of this encounter
--- OUTSIDE RECORDS SUMMARY | 2024-06-25 07:58 | XMS_ITS | Encounter Summary ---
Author Organization [facility] Address [address] [place] [address] Care Team Providers Care Certified Histologic Technician Name Role Phone Unavailable Primary Care Provider Unavailabl e Encounter Details Date Type Department Care Team (Late st Contact Info) Description 11/01/2003 Outpatient Historical [facility] [address] [facility] [place] [address] Elen Coyle MD [address] [place] [address] Social History Tobacco Use Types Packs/Day Years Used Date Smoking Tobacco: Never Assessed Comments Unknown Sex and Gender Information Value Date Recorded Sex Assigned at Not on file Legal Sex Female 3:06 AM MANAGER DISCOVERY Gender Identity Not on file Sexual Orientation Not on file documented as of this encounter Plan of Treatment Not on file documented as of this encounter Visit Diagnoses Not on filedocumented in this encounter
--- OUTSIDE RECORDS SUMMARY | 2024-06-25 07:58 | XMS_ITS | Encounter Summary ---
Author Organization [facility] Address [address] [place] [address] Care Team Providers Care Full Charge Bookkeeper Name Role Phone Unavailable Primary Care Provider Unavailabl e Encounter Details Date Type Department Care Team (Latest Contact Info) Description 09/09/2003 Outpatient Historical [facility] PATIENT IN A BED Raquel Park MD NO ADDRESS ON FILE OTHER CURR COND-ANTEPARTUM (Primary Dx) Social History Tobacco Use Types Packs/Day Years Used Date Smoking Tobacco: Never Assessed Comments Unknown Sex and Gender Information Value Date Recorded Sex Assigned at Not on file Legal Sex Female 3:06 AM ROLLED HAM LACER Gender Identity Not on file Sexual Orientation Not on file documented as of this encounter Plan of Treatment Not on file documented as of this encounter Visit Diagnoses Diagnosis Other current maternal conditions classifiable elsewhere, antepartum- Primary documented in this encounter
--- OUTSIDE RECORDS SUMMARY | 2024-06-25 07:58 | XMS_ITS | Encounter Summary ---
Author Organization [facility] Address [address] [place] [address]. [place], [place] [id number] [place] [address] Care Team Providers Care Mission Coordinator Name Role Phone Mya Colindres [facility] Primary Care Provider [phone] Encounter Details Date Type Department Care Team (Late st Contact Info) Description 12/27/2023 MyCMediust Message Enc [facility] [address] [place] [phone] Mya Colindres, 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 Sex Female 8:06 AM CDT Gender Identity Not on file Sexual Orientation Not on file documented as of this encounter Plan of Treatment Upcoming Encounters Date Type Department Care Team (Late st Contact Info) Description 11/09/2024 8:00 AM CDT Treatment [facility] [place] [address] None, Provider, documented as of this encounter Visit Diagnoses Not on filedocumented in this encounter Additional Health Concerns Assessment Noted Time PHQ-9 Depression Total Score: 0 03/29/20 23 1:34 PM CDT documented as of this encounter Care Teams Mission Coordinator Relationship Specialty Start Date End Date Mya Colindres FNP [address] [place] [address] [place] [address] PCP - General Nurse Practitioner Family 08/05/18 documented as of this encounter
--- OUTSIDE RECORDS SUMMARY | 2024-06-25 07:58 | XMS_ITS | Data Portability ---
Author Organization [facility] [place] Address [address] [place] [address] Care Team Providers Care Camp Advisor Name Role Phone CATRACHITAOralia FELICIA Primary Care Provider [phone] Assessment Encounter Date Assessment Date Assessment LastModified by Organization Details LastModified Time 05/28/2023 05/28/2023 Annual gynecological exam performed. Patient will come back in a year unless there are new symptoms. Not available 05/28/2023 11:13:31 Plan of Treatment Reminders Order Date Submit Date Provider Last Modified By Organization Details Last Modified Time Details Appointments None recorded . Lab beta-HCG , quantita tive, serum or plasma 2022 023 [facility] (Lab), [address] [place], [address], 3 17:35:18 progeste cade, serum 2022 023 [facility] (Lab), [address] [place], [address], 3 17:35:19 prolacti n, serum 2022 023 [facility] (Lab), [address] [place], [address], 3 17:35:20 FSH (follicl e-stimul ating hormone) , serum 2022 023 [facility] (Lab), [address], [place], [address], 3 17:35:20 estradio l, serum 2022 023 [facility] (Lab), [address], [place], [address], 3 17:35:19 dhea-sul fate, serum 2022 023 [facility] (Lab), [address], [place], [address], 3 17:35:18 TSH, serum or plasma 2022 023 [facility] (Lab), [address], [place], [address], 3 17:35:21 testoste cade free/cody tosteron e total, ratio, serum 2022 023 [facility] (Lab), [address] [facility], [place], [address], 3 17:35:21 Referral endocrin ology referral 2022 023 [facility] - Endocrinology , [address], [place], [address], 3 13:29:48 Procedures None recorded . Surgeries None recorded . Imaging MAMMO, screenin g, digital, bilatera l 2022 023 [email or web address] [facility], [address], [place], [address], 4 16:42:57 US, pelvis, complete 2022 023 [email or web address] [facility], [address], [address], [place], [address], 4 16:42:57 US, pelvis 2022 023 [email or web address] [facility] [address], [place], [address], 3 15:30:47 US, transvag inal 2022 023 [email or web address] [facility] , [address], [place], [address], 3 12:43:43 Medication Orders None recorded . Patient TargetsNo targets recorded. Patient InstructionsNo instructions recorded. Reason for Referral Endocrinology Referral for H yperprolactinemia Referring Physician: Minnie Richards RAIL TRANSPORTATION TABELER, Encounter Date: 01/21/2023 Results Created Date Observation Date Name Description Value Unit Range Abnormal Flag Note LastModifiedBy Organization Detail LastModifiedTime 01/15/2001/14/2023 DHEA SULFA TE DHEA-sulfate 468 ug/dL Femal e Range s Age(y ) Range (ug/d L) 10-15 34-28 0 15-20 65-36 8 20-25 148-4 07 25-35 99-34 0 35-45 61-33 7 45-55 35-25 6 55-65 19-20 5 65-75 9-246 > 75 12-15 4 Not Available [facility] (Lab) [address], [place], [address], 01/22/2023 17:35:18 01/15/20 23 01/14/2023 BHCG, QUANT ITATI VE B-HCG <0.2 mIU/m L This assay was perfo rmed using [employer] ratio n reage nts and test kits. Value s obtai christoph with other assay metho ds or kits canno t be used inter sánchez eably . Refer ence Range s: Non-p regna nt, preme nopau tylor women : 0.0-5 .3 mIU/m L Postm enopa usal women : 0.0-7 .0 mIU/m L Shantal l Pregn jon: Gesta candy l Age bHCG Conc. - mIU/m L 3 Weeks 5.8 - 71.7 4 Weeks 9.5 - 750 5 Weeks 217-7 138 6 Weeks 158 - 31,79 5 7 Weeks 3,697 - 162,5 63 8 Weeks 32,06 5 - 149,5 71 9 Weeks 63,80 3 - 151,4 10 10 Weeks 46,50 9 - 186,9 77 12 Weeks 27,83 2 - 210,6 12 14 Weeks 13,95 0 - 62,53 0 15 Weeks 12,03 9 - 70,97 1 16 Weeks 9,040 - 56,45 1 17 Weeks 8,175 - 55,86 8 18 Weeks 8,099 - 58,17 6 Not Available [facility] (Lab) [address] [place], [address], 01/22/2023 17:35:18 01/15/20 23 01/14/2023 ESTRA DIOL estradiol 13.2 pg/mL This assay was perfo rmed using [employer] ratio n reage nts and test kits. Value s obtai christoph with other assay metho ds or kits canno t be used inter [facility] . Femal e Estra diol Range s: Folli cular phase 12.4- 233 pg/mL Ovula tion phase 41.0- 398 pg/mL Lutea l phase 22.3- 341 pg/mL Postm enopa usal< 5-138 pg/mL Healt hy Pregn ant Women 1st Trime ster1 54-32 43 pg/mL 2nd Trime ster1 561-2 1280 pg/mL 3rd Trime ster8 525-> 88222 pg/mL Not Available [facility] (Lab) [address] [place], [address], 01/22/2023 17:35:19 01/15/20 23 01/14/2023 PROGE STERO NE progesterone 0.23 NG/mL This assay was perfo rmed using [employer] ratio n reage nts and test kits. Value s obtai christoph with other assay metho ds or kits canno t be used inter [facility]án[facility] e[facility] . Femal e Proge stero ne Range s: Folli cular phase 0.06- 0.89 ng/mL Ovula tion phase 0.12- 12.00 ng/mL Lutea l phase 1.83- 23.90 ng/mL Postm enopa usal< 0.05- 0.13 ng/mL Healt hy Pregn ant Women 1st Trime ster1 1.0-4 4.30 2nd Trime ster2 5.40- 83.30 3rd Trime ster5 8.70- 214.0 0 Not Available [facility] (Lab) [address] [place], [address], 01/22/2023 17:35:19 01/15/20 23 01/14/2023 PROLA CTIN prolactin, total 112.00 NG/mL 4.79-2 3.30 high This assay was perfo rmed using [employer] ratio n reage nts and test kits. Value s obtai christoph with other assay metho ds or kits canno t be used inter [facility] . Not Available [facility] (Lab) [address], [place], [address], 01/22/2023 17:35:20 01/15/20 23 01/14/2023 FSH FSH 7.1 mIU/m L This assay was perfo rmed using [employer] ratio n reage nts and test kits. Value s obtai christoph with other assay metho ds or kits canno t be used inter [facility] . Femal es Folli cular : 3.5-1 2.5 mIU/m L Ovula tion: 4.7-2 1.5 mIU/m L Lutea l: 1.7-7 .7 mIU/m L Postm enopa use: 25.8- 134.8 mIU/m L Not Available [facility] (Lab) [address] [place], [address], 01/22/2023 17:35:20 01/15/20 23 01/14/2023 TSH, REFLE X FREE T4 TSH 0.72 uIU/m L 0.30-5 .33 Not Available [facility] (Lab) [address] [facility], [place], [address], 01/22/2023 17:35:21 01/15/20 23 01/14/2023 TESTO STERO NE, FREE( DIALY SIS) AND TOTAL (LC/M S/MS) testosterone , total 24 NG/dL 2-45 For addit ional infor sriram antonio refer to http: //[facility] peterson vasquez.que stdia gnost ics.c om/fa q/Tot alTjeane Arriaga [facility] (This link is being provi ded for infor matvale nal/ educa candy l purpo ses only. ) This test was devel oped and its kelley tical perfo rmanc e ishmael cteri stics have been deter mined by [facility]. It has not been clear ed or appro darryn by the FDA. This assay has been valid ated pursu ant to the CLIA regul ation s and is used for clini eleno purpo ses. Not Available [facility] (Lab) [address] [facility], [place], [address], 01/22/2023 17:35:21 01/15/20 23 01/14/2023 TESTO STERO NE, FREE( DIALY SIS) AND TOTAL (LC/M S/MS) testosterone , free 3.8 pg/mL 0.1-6. 4 This test was devel oped and its kelley tical perfo rmanc e ishmael cteri stics have been deter mined by [facility]. It has not been clear ed or appro darryn by the FDA. This assay has been valid ated pursu ant to the CLIA regul ation s and is used for clini eleno purpo ses. Perfo rming Organ izati on Janer princessvale vasquez: Site ID: [id number] Name: [facility]Nick jese [address] Addre ss: [id number] [place] [address] Dire tor: Gustavo lawson M.D. Not Available [facility] (Lab) [address] [place], [address], 01/22/2023 17:35:21 05/28/19 24 05/28/2023 IMAGE GUIDE D PAP AND HPV REGAR DLESS image guided Pap, HPV regardless of Pap result SEE RESULT S BELOW CASE REPOR T: Cytol ogy Gynec ologi eleno Repor t Case: [id number] Autho regina jacques Provi olivier: Octavio hassanich , Concepción Davis cted: 05/28 1446 FIELD SUPPORT SPECIALIST Order ing Locat ion: [place] [facility] Recei darryn: 05/28 2344 First Scree n: Monalisa ni, Moham ed, CT Rescr een: Veronica Huynh Speci men: Scree darin Pap - Image d, Cervi x STATE MENT OF ADEQU ACY: Satis facto ry for evalu ation Trans forma tion zone compo nent prese nt FINAL DIAGN OSIS: Negat kassy for Intra epith elial Theron vasquez or Ming masterson (NIL) . Elect dru howard hyun d by Veronica Huynh on 024 at 3:14 PM ----- ----- ----- ----- ----- ----- ----- ----- ----- ----- ----- ----- ----- ----- ----- ----- ----- ---- HPV RESUL TS: HPV mRNA E6/E7 : No HPV mRNA Detec julian NOTE: This high risk HPV mRNA assay detec ts fourt een high- risk HPV types (16, 18, 31, 33, 35, 39, 45, 51, 52, 56, 58, 59, 66, 68) witho ut diffe renti ation . COMME NT: This speci men was revie wed by a Cytot echno logis t and/o r Patho logis t (as indic ated in this repor t) after evalu ation using the Thinp rep Imagi ng Syste m. NOTE: A repro cessi ng proce dure was perfo rmed on this speci men due to obscu ring lubri cant/ mucin . CLINI ELENO INFOR MATIO N: Menst rual Statu s: LMP (if appli cable ): Clini eleno Histo ry/Pr eviou s Pap: Type of Neopl cori (if appli cable ): Signi fican t Clini eleno Findi ngs: Other Histo ry: Hormo vaibhav (if appli cable ): PAP EDUCA CADNY L NOTE: The Pap Test is a scree darin test with an inher ent false negat kassy rate. Liqui d-bas ed sampl ing may decre ase, but will not elimi marshall, false negat kassy resul ts. A negat kassy resul t does not precl ude the prese nce and/o r devel opmen t of disea se, since the prese nce of abnor mal cells in the sampl e depen ds on the locat ion of the lesio n and sampl ing techn ique. Carmen nued regul ar scree darin is the best metho d of cance r preve ntion . If repor julian cytol ogic findi ng do not corre late with physi eleno and/o r histo rical findi ngs, furth er inves tigat ion is recom earle d, as clini oracio [place] nted. Not Available [facility] (Lab) [address], [place], [address], 05/30/2023 16:17:33 01/16/20 23 01/15/2023 US, pelvi s No observ ation record ed. [email or web address] [facility] [address], [place], [address], 01/15/2023 14:26:07 01/16/20 23 01/15/2023 US, pelvi s No observ ation record ed. manny Medina [address], [facility], [place], [address], 01/21/2023 13:53:41 10/07/19 24 10/07/2023 MAMMO , scree darin, digit al, bilat eral No observ ation record ed. [facility] [address], [place], [address], 10/21/2023 04:09:25 10/07/1910/07/2023 MAMMO , scree darin, digit al, bilat eral No observ ation record ed. [facility] [address], [place], [address], 10/21/2023 04:09:25 Result Notes None recorded. Problems Name Problem SNOMED Code Status Onset Date Resolution Date Notes Provider Name and Address Organization Details Recorded Time Insertio n of intraute rine contrace ptive device Completed 201607/04/2020 Encounte r for initial prescrip tion of intraute rine contrace ptive device;R ecorded Elsewher e: No Locat ion: [facility] S ource: [employer] Set Up Mechanic nick: N Practi ce ID: 0001 Christophe lable Time: 09:15:00 AM Mary jessica [facility] 14:53:13 Screenin g for malignan t neoplasm of cervix Completed 201707/04/2020 Screenin g for malignan t neoplasm s of the cervix;R ecorded Elsewher e: No Locat ion: [facility] S ource: [employer] Machinery Set Up Mechanic nick: N Practi ce ID: 0001 Christophe lable Time: 02:30:00 PM Mary jessica [facility] 14:53:[address] Concept Completed 201607/04/2020 Encntr for operations research analyst exam (general ) (routine ) w/o abn findings ;Recorde d Elsewher e: No Locat ion: [facility] S ource: EHR [employer]inery Set Up Mechanic nick: N Practi ce ID: 0001 Christophe lable Time: 09:15:00 AM Mary jessica [facility] 14:53:17 Atypical squamous cells of undeterm ined signific ance on cervical Papanico laou smear 007177895 Completed 201607/04/2020 Atyp squam cell of undet signfc cyto smr crvx (ASC-US) ;Recorde d Elsewher e: No Locat ion: [facility] S ource: [employer] Set Up Mechanic nick: N Doug ce ID: 0001 Christophe lable Time: 04:10:32 PM Mary jessica [facility] 14:53:09 Syphilis test finding [id number] Completed 201607/04/2020 Encntr screen for infectio ns w sexl mode of transmis s;Record ed Elsewher e: No Locat ion: [facility] S ource: [employer] Set Up Mechanic nick: N Doug ce ID: 0001 Christophe lable Time: 09:15:00 AM Mary Carrillojoseluis jessica, [facility] 14:53:21 Body mass index 25-29 - overweig ht 899476774 Completed 201707/04/2020 Body mass index (BMI) 27.0-27. 9, adult;Re corded Elsewher e: No Locat ion: [facility] S ource: [employer] Set Up Mechanic nick: N Doug ce ID: 0001 Christophe lable Time: 02:30:00 PM Mary jessica [facility] 14:53:10 Infectio n screenin g Completed 201607/04/2020 Encounte r for screenin g for oth infec/pa rastc diseases ;Recorde d Elsewher e: No Locat ion: [facility] S ource: [employer] Set Up Mechanic nick: N Doug ce ID: 0001 Christophe lable Time: 09:15:00 AM Mary Carrillojoseluis jessica [facility] 14:53:12 Hyperten sive disorder 05170583 Active 2020 Mary Carrillo aracely [facility] 15:25:23 Cigarett e smoker 45558528 Active 2020 Mary Carrillo jessica, [facility] 15:30:53 Problem Notes None recorded. Procedures Surgical History Date Name Laterality Status Provider Name and Address Organization Details Recorded Time 02/27/20 23 Date of Last Colonoscopy completed Sapphire Carvalho [facility] 05/28/2023 11:20:14 11/06/19 18 Date of Last Pap Smear completed Mary Carrillo [facility] 12/12/2020 16:55:47 05/27/19 09 Dilation and Curettage completed Mary Carrillo [facility] 07/04/2020 15:31:13 Imaging Results Imaging Date Name Status LastModified by Organiz ation Details LastModified Time 01/15/2023 US, pelvis completed [email or web address] [place] [address], [place], [address], 01/15/2023 14:26:07 01/15/2023 US, pelvis completed manny Medina [address], [facility], [place], [address], 01/21/2023 13:53:41 10/07/2023 MAMMO, screening, digital, bilateral active [address] [place] [address], [address], 10/21/2023 04:09:25 10/07/2023 MAMMO, screening, digital, bilateral active [place] [address], [place], [address], 10/21/2023 04:09:25 Procedure Notes None recorded. Medical Equipment None Reported. Allergies No known drug allergies Medications Name Sig Start Date Stop Date Status Note LastModified by Organization Details LastModified Time Nicotrol NS 10 mg/mL nasal spray INSTILL 1 SPRAY PER NOSTRIL 1-2 TIMES PER HOUR NEEDED. NO SMOKING WHILE USING THIS 05/28 completed Not Available Not Available Not Available doxycycli ne hyclate 100 mg capsule TAKE 1 CAPSULE BY MOUTH TWICE A DAY FOR 7 DAYS 01/14 completed Not Available Not Available Not Available atorvasta tin 20 mg tablet TAKE 1 TABLET BY MOUTH EVERYDAY AT BEDTIME active Not Available Not Available No t Available indapamid e 2.5 mg tablet TAKE 1 TABLET BY MOUTH EVERY DAY active Not Available Not Available No t Available diclofena c ER 100 mg tablet,ex tended release 24 hr take 1 tablet by oral route every day 11/05 completed Prescrib ed Elsewher e: Yes Loca tion: [facility] odify By: [email or web address] Encounte r DateTime : 06/22/19 17 09:15:00 AM Not Available Not Available Not Available lisinopri l 20 mg tablet TAKE 1 TABLET BY MOUTH EVERY DAY active Not Available Not Available No t Available prednison e 20 mg tablet PLEASE SEE ATTACHED FOR DETAILED DIRECTIO NS 05/28 completed Not Available Not Available Not Available clonazepa m 1 mg tablet PLEASE SEE ATTACHED FOR DETAILED DIRECTIO NS 05/28 completed Not Available Not Available Not Available phentermi ne 15 mg capsule TAKE 1 CAPSULE BY MOUTH TWICE A DAY 01/14 completed Not Available Not Available Not Available Diflucan 150 mg tablet take 1 tablet by oral route once 07/04 completed Prescrib ed Elsewher e: No Locat ion: [facility] odify By: jlgreen Encounte r DateTime : 03/18/20 18 02:49:46 PM Not Available Not Available Not Available venlafaxi ne ER 150 mg capsule,e xtended release 24 hr TAKE 1 CAPSULE BY MOUTH EVERYDAY AT BEDTIME active Not Available Not Available No t Available metronida zole 500 mg tablet 1 TABLET BY MOUTH THREE TIMES A DAY 1 TABLET ORALLY EVERY 8 HRS X 10 DAYS 01/14 completed Not Available Not Available Not Available peg-elect rolyte solution 420 gram oral solution TAKE 4,000 ML'S BY MOUTH ONCE FOR 1 DOSE 01/14 completed Not Available Not Available Not Available amoxicill in 875 mg tablet TAKE 1 TABLET BY MOUTH TWICE A DAY FOR 7 DAYS 01/14 completed Not Available Not Available Not Available pantopraz ole 40 mg tablet,de layed release TAKE 1 TABLET BY MOUTH EVERY DAY 01/14 completed Not Available Not Available Not Available buspirone 10 mg tablet TAKE 1 TABLET BY MOUTH THREE TIMES A DAY active Not Available Not Available No t Available cabergoli ne 0.5 mg tablet TAKE HALF A TABLET (0.25 MG) BY MOUTH TWICE WEEKLY active Not Available Not Available No t Available nicotine 21 mg/24 hr daily transderm al patch PLACE 1 PATCH (21 MG TOTAL) ONTO THE SKIN DAILY FOR 42 DAYS. 05/28 completed Not Available Not Available Not Available indapamid e 1.25 mg tablet take 1 tablet by oral route every day in the morning 11/05 completed Prescrib ed Cyndy e: Yes Loca tion: [facility] M odify By: johnathon gabriel DateTime : 06/22/19 17 09:15:00 AM Not Available Not Available Not Available gabapenti n 300 mg capsule TAKE 1 CAP DAILY FOR 3 DAYS, THEN 1 CAP 2X A DAY FOR 3 DAYS, THEN 1 CAP 3X A DAY. 05/28 completed Not Available Not Available Not Available hydroxyzi ne HCl 10 mg tablet TAKE 1 TABLET BY MOUTH 3 TIMES DAILY NEEDED FOR ANXIETY. active Not Available Not Available No t Available metformin ER 500 mg tablet,ex tended release 24 hr active Not Available Not Available Not Available varenicli ne tartrate 0.5 mg (11)-1 mg (42) tablets in a dose pack TAKE DIRECTED PER PACKAGE 01/14 completed Not Available Not Available Not Available Trulicity 0.75 mg/0.5 mL subcutane ous pen injector INJECT 1.5 MG UNDER THE SKIN ONCE A WEEK. active Not Available Not Available No t Available BinaxNOW COVID-19 Ag Self Test kit 01/14 completed Not Available Not Available Not Available Vitals Date Recorded Body height Body mass index (BMI) Body weight Systolic blood pressure Diastolic blood pressure Provider Name and Address Organization Details Last Updated DateTime 01/14/2023 160.02 cm 32.2 kg/m2 34036.81 g 129 mm[Hg] 87 mm[Hg] Mamta Meza [facility] 3 10:37:37 Date Recorded Body height Body mass index (BMI) Body weight Systolic blood pressure Diastolic blood pressure Provider Name and Address Organization Details Last Updated DateTime 01/21/2023 160.02 cm 32.2 kg/m2 79464.81 g 128 mm[Hg] 84 mm[Hg] Mamta Meza [facility] 3 10:41:48 Date Recorded Body height Body mass index (BMI) Body weight Systolic blood pressure Diastolic blood pressure Provider Name and Address Organization Details Last Updated DateTime 05/28/2023 160.02 cm 33.1 kg/m2 12342.77 g 116 mm[Hg] 79 mm[Hg] Sapphire Carvalho [facility] 4 11:17:22 Social History Question Answer Notes LastModified by Organizat ion Details LastModified Time Tobacco Smoking Status Current Every Day Smoker Mary Vizcaino aracely, [facility] 07/04/2020 15:30:47 In The 14 Days Before Symptom Onset, Have You Had Close Contact With A Laboratory-confirm ed COVID-19 While That Case Was Ill? No Information n ot available 05/28/2023 In The 14 Days Before Symptom Onset, Have You Had Close Contact With A Person Who Is Under Investigation For COVID-19 While That Person Was Ill? No Information not available 05/28/2023 Have You Been To An Area Known To Be High Risk For COVID-19? No Information not available 05/28/2023 Sex: Unknown Functional Status None recorded. Mental Status None recorded. Family History Relationship Description Onset Age of this Age Resolved Age Notes LastModified by Organization Details LastModified Time Mother Hypertensive disorder [email or web address] Not available 12/26 10:37:44 Medical History Condition Response Allergies (Food, seasonal, environmental ) N Other N Breast Cancer N Drug/Latex Allergies/Reactions N Blood Transfusion N Dermatologic Disorders N Lung Disease N Defects or Inherited Disease N Breast Problem N Gestational Diabetes N Hematologic disorders N Anesthesia Complications N History of STI N Deep Vein Thrombosis N Polycystic ovary syndrome N Anxiety Disorder N Autoimmune disease N Arthritis N Infertility N Polyps N Acid Reflux (GERD) N History of abnormal pap Y Cancer N Stroke N Varicosities N Neurologic/Epilepsy Y Endometriosis N High Cholesterol N Headaches N Fibromyalgia N Kidney Disease N Heart Problems N Kidney or Bladder Problems N Thyroid Problems N GI Problems N Eating Disorder N Anemia N Art (IVF or FET) N Psychiatric Illness N Ovarian Cancer N Diabetes N Pulmonary (TB, Asthma) N Hepatitis/Liver Disease N Eczema N Urinary Tract Infection N Abuse/Domestic Violence N Asthma N Trauma/Violence N Depression/ depression N Heart Disease N Pre-Eclampsia N Hypertension Y Osteoporosis N Thrombophilias N Gynecological History Statement/Question Response Abnormal Pap Yes Date of Last Mammogram On BCP's at Conception? N Was last menstrual period normal N STIs/STDs Y HPV Vaccine N Current Control Method None Are cycles usually normal N Date of Last Colonoscopy 02/26/2023 Sexually Active? Y Menses Monthly N Age of first menstrual cycle 13 Date of Last Pap Smear 11/05/2017 Sexual Problems? N LMP Unknown 06/22/2016 Obstetrics History GPAL:G 5 P 4 0 1 4 Type Value Full Term 4 Spontaneous 1 Living 4 Total 5 Past Encounters Encounter ID Performer Location Encounter Start Date Encounter Closed Date Diagnosis/Indication Diagnosis SNOMED-CT Code Diagnosis ICD10 Code Diagnosis Note [id number] Minnie Richards [facility] [address],[place] [address] 01/14/2023 10:28:54 01/14/2023 12:03:30 Amenorrhea 63467528 N91.2 detailed hx obtained and reviewed todaywe agreed to update labs for further evaluation of possible menopausal statuswill update pelvic u/smammogr am order givenwill need to update pap at f/u appointmen t Time spent in visit is a total of 28 mins with at least 50% of visit consisting of counseling and review of plan of care. Screening for malignant neoplasm of breast 069876146 Z12.39 Irregular periods 579429 07 N92.6 [id number] Emily Tinajero [facility] [address] [address] 01/15/2023 10:43:49 01/15/2023 11:52:43 Amenorrhea 84208327 N91.2 [id number] GLORIA Quinn [facility] [address] [address] 01/21/2023 10:21:58 01/23/2023 16:15:10 Hyperprolactinemia 821360777 E22.1 Reviewed updated TVUS - wnldiscuss ed labs - elevated prolactinr eviewed hyperprola ctinemia which warrants further evaluation and imagingref erral sent to endocrinol ogist - encouraged patient to scheduleen couraged to patient to RTC after evaluation with endocrine to discuss period regulation Time spent in visit is a total of 20 mins with at least 50% of visit consisting of counseling and review of plan of care. Irregular periods 213416 07 N92.6 [id number] Claudia Martel , [facility] [address] [address] 1 05/28/2023 11:09:09 05/28/2023 11:43:39 Gynecologic examination [id number] Z01.419 Suggested Calcium with Vitamin D 1200-1500m g daily. Patient advised to get an annual flu shot in the fall and she could obtain at [facility] or [facility] clinic. Also to obtain TDap vaccinatio n if you have not had one in the last 10 years. Recommend yearly mammograms . Encouraged monthly self breast exams. Encourage safe sexual practices, to use condoms and limit partners if not already in a monogamous relationsh ip. Engage in daily exercise of low impact aerobic exercise 45-60 minutes 4-5 times weekly. Avoid tobacco and illicit drugs as well as using moderation with alcohol intake less than 1-2 8 oz beverages daily. This lifestyle behavior pattern will lead to less health conditions and longer life span. If BMI greater than 25 weight watchers or dietary consult advised. All questions have been answered. Patient appears to understand informatio n, but if you have any questions please call or respond to this email. Pap/hpv sentSTD Screen discussedG enetic Screen discussedC olon Screen PCPDexa Screen naRoutine Labs PCP/Specia list Screening mammography 24 [id number] Z12.31 Previously ordered and has scheduled. Contracept ion care management [id number] Z30.9 Interested in tubal ligationMD consult recommende d Health Concerns Section Related Observation LastModified by Organization Detai ls LastModified Time None Recorded Concern Status LastModified by Organization Details LastModified Time None Recorded Advance Directives Directive None Recorded Payers Encounter Date Sequence Insurance Name Policy Number Policy Hernandez Covered Member ID Hernandez Member ID Guarantor Name 01/14/2023 1 [facility] (MEDICAID HMO) [id number] Pam Gabriel Tarnovsky [id number] Pam Gabriel Nidhinovsky 01/15/2023 1 [facility] (MEDICAID HMO) [id number] Pam Gabriel Tarnovsky [id number] Pam Gabriel Tarnovsky 01/21/2023 1 [facility] (MEDICAID HMO) [id number] Pam Gabriel Tarnovsky [id number] Pam Gabriel Tarnovsky 05/28/2023 1 [facility] (MEDICAID HMO) [id number] Pam Gabriel Tarnovsky [id number] Pam Gabriel Tarbrannony Notes Date Note Type Note Provider Name and Address Organization Details Recorded Time 01/14/2023 text/html 42yopresents to discuss amenorrheaLMP 1 year ago, prior to that LMP was 10/11 months prior. Prior to last 2 periods, periods had been monthly/ normal duration and length.SA with steady male partner, withdrawal for BChas been having some hot flashes and night sweats over the last yearmedical hx : prediabetes, HTN, smokerneg vaginal symptomsneg pelvic painneg urinary symptoms GLORIA Quinn [address], [place], [address], [facility] 01/14/2023 11:59:55 01/21/2023 text/html 42yopresents to discuss labs and pelvic u/s (see HPI from SONIA) GLORIA Quinn [address], [place], [address], [facility] 01/23/2023 14:00:51 05/28/2023 text/html Annual GYNReport ed bypatient.Menstrual cycle:Normal menses Urinary symptoms:No hematuria; No incontinence Vulva:No genital lesion Vagina:Normal vaginal discharge Breast:No breast pain; No breast lump; No nipple discharge Current Contraception:Satis fied with current contraception; Condoms Sexual complaints:No sexual complaints; No pain during intercourse; Normal libido Menopausal Symptoms:No menopausal symptoms; Normal vaginal lubrication Psychological symptoms:No depression; No anxiety; No PMDD Preventive measures:Encourage self breast examination; Encourage regular exercise; Encourage no tobacco use; Encourage regular mammograms starting age 40; Followed with yearly pap smears; Needs to schedule mammogram Claudia Martel, [facility]- [address], [place], [address], [facility] 05/28/2023 11:38:31 OBGyn Episode Ob Episode Information Episode Created Date Number of Fetuses Patient Bloodtype Patient rh Status Prepregnancy Weight lbs Domestic Partner Domestic Partner Phone Father Name Service Tester Status 07/04/19 21 1 CLOSED Fetus Data First Name Last Name Admitted to NICU Weight (g) Sex Living Outcome Pediatric Complications Fetus ID Race Codes Race Delivery Type 2721.55 2 M Full Term 7765 Vaginal Delivery Tone Calculation Initial Tone Date Initial Exam Date Initial Exam Provider Initial Ultrasound Date Last Menstrual Period Date Ultra Sound Weeks Gestation 0 Eighteen To Twenty Week Tone Update Ultra Sound Date Fundal Height At Umbil Quickening Date Ultra Sound Latest Weeks Gestation Final Tone Confirmed By Final Tone Confirmed Date Final Tone Date Ultra Sound Latest Days Gestation 0 0 Menstrual History Last Menstrual Date Menses Monthly On Bcp Conception Prior Menses Frequency Hcg Plus Date Menarche Onset Age Delivery Information Delivery Date Delivery Type Labor Anesthesia Weeks Gestation Incision Type Labor Labor Length Hrs Delivered By Post Complications Tubal Sterilization Discharge Date Comments 8 37 Discharge Information Feeding Method Contraceptive Method Maternal HG B and HCT Levels Ob Episode Information Episode Created Date Number of Fetuses Patient Bloodtype Patient rh Status Prepregnancy Weight lbs Domestic Partner Domestic Partner Phone Father Name Service Tester Status 07/04/19 21 1 CLOSED Fetus Data First Name Last Name Admitted to NICU Weight (g) Sex Living Outcome Pediatric Complications Fetus ID Race Codes Race Delivery Type , Spontane ous 7769 Tone Calculation Initial Tone Date Initial Exam Date Initial Exam Provider Initial Ultrasound Date Last Menstrual Period Date Ultra Sound Weeks Gestation 0 Eighteen To Twenty Week Tone Update Ultra Sound Date Fundal Height At Umbil Quickening Date Ultra Sound Latest Weeks Gestation Final Tone Confirmed By Final Tone Confirmed Date Final Tone Date Ultra Sound Latest Days Gestation 0 0 Menstrual History Last Menstrual Date Menses Monthly On Bcp Conception Prior Menses Frequency Hcg Plus Date Menarche Onset Age Delivery Information Delivery Date Delivery Type Labor Anesthesia Weeks Gestation Incision Type Labor Labor Length Hrs Delivered By Post Complications Tubal Sterilization Discharge Date Comments 6 Discharge Information Feeding Method Contraceptive Method Maternal HG B and HCT Levels Ob Episode Information Episode Created Date Number of Fetuses Patient Bloodtype Patient rh Status Prepregnancy Weight lbs Domestic Partner Domestic Partner Phone Father Name Service Tester Status 07/04/19 21 1 CLOSED Fetus Data First Name Last Name Admitted to NICU Weight (g) Sex Living Outcome Pediatric Complications Fetus ID Race Codes Race Delivery Type 4110.45 0704 M Full Term 7768 Primary Tone Calculation Initial Tone Date Initial Exam Date Initial Exam Provider Initial Ultrasound Date Last Menstrual Period Date Ultra Sound Weeks Gestation 0 Eighteen To Twenty Week Tone Update Ultra Sound Date Fundal Height At Umbil Quickening Date Ultra Sound Latest Weeks Gestation Final Tone Confirmed By Final Tone Confirmed Date Final Tone Date Ultra Sound Latest Days Gestation 0 0 Menstrual History Last Menstrual Date Menses Monthly On Bcp Conception Prior Menses Frequency Hcg Plus Date Menarche Onset Age Delivery Information Delivery Date Delivery Type Labor Anesthesia Weeks Gestation Incision Type Labor Labor Length Hrs Delivered By Post Complications Tubal Sterilization Discharge Date Comments 1 38 Discharge Information Feeding Method Contraceptive Method Maternal HG B and HCT Levels Ob Episode Information Episode Created Date Number of Fetuses Patient Bloodtype Patient rh Status Prepregnancy Weight lbs Domestic Partner Domestic Partner Phone Father Name Service Tester Status 07/04/19 21 1 CLOSED Fetus Data First Name Last Name Admitted to NICU Weight (g) Sex Living Outcome Pediatric Complications Fetus ID Race Codes Race Delivery Type 3855.53 2 M Full Term 7766 Primary Tone Calculation Initial Tone Date Initial Exam Date Initial Exam Provider Initial Ultrasound Date Last Menstrual Period Date Ultra Sound Weeks Gestation 0 Eighteen To Twenty Week Tone Update Ultra Sound Date Fundal Height At Umbil Quickening Date Ultra Sound Latest Weeks Gestation Final Tone Confirmed By Final Tone Confirmed Date Final Tone Date Ultra Sound Latest Days Gestation 0 0 Menstrual History Last Menstrual Date Menses Monthly On Bcp Conception Prior Menses Frequency Hcg Plus Date Menarche Onset Age Delivery Information Delivery Date Delivery Type Labor Anesthesia Weeks Gestation Incision Type Labor Labor Length Hrs Delivered By Post Complications Tubal Sterilization Discharge Date Comments 4 38 Discharge Information Feeding Method Contraceptive Method Maternal HG B and HCT Levels Ob Episode Information Episode Created Date Number of Fetuses Patient Bloodtype Patient rh Status Prepregnancy Weight lbs Domestic Partner Domestic Partner Phone Father Name Service Tester Status 07/04/19 21 1 CLOSED Fetus Data First Name Last Name Admitted to NICU Weight (g) Sex Living Outcome Pediatric Complications Fetus ID Race Codes Race Delivery Type 3742.13 4 M Full Term 7767 Repeat Tone Calculation Initial Tone Date Initial Exam Date Initial Exam Provider Initial Ultrasound Date Last Menstrual Period Date Ultra Sound Weeks Gestation 0 Eighteen To Twenty Week Tone Update Ultra Sound Date Fundal Height At Umbil Quickening Date Ultra Sound Latest Weeks Gestation Final Tone Confirmed By Final Tone Confirmed Date Final Tone Date Ultra Sound Latest Days Gestation 0 0 Menstrual History Last Menstrual Date Menses Monthly On Bcp Conception Prior Menses Frequency Hcg Plus Date Menarche Onset Age Delivery Information Delivery Date Delivery Type Labor Anesthesia Weeks Gestation Incision Type Labor Labor Length Hrs Delivered By Post Complications Tubal Sterilization Discharge Date Comments 200 8 38 Discharge Information Feeding Method Contraceptive Method Maternal HG B and HCT Levels
--- OUTSIDE RECORDS SUMMARY | 2024-06-25 07:58 | XMS_ITS | Encounter Summary ---
Author Organization [facility] Address [address] [place] [address] Care Team Providers Care Fagoting Machine Operator Name Role Phone Unavailable Primary Care Provider Unavailabl e Encounter Details Date Type Department Care Team (Late st Contact Info) Description 11/01/2003 Outpatient Historical [facility] Maternal and [facility] [address] [place] [address] Elen Coyle MD [address] [place] [address] Social History Tobacco Use Types Packs/Day Years Used Date Smoking Tobacco: Never Assessed Comments Unknown Sex and Gender Information Value Date Recorded Sex Assigned at Not on file Legal 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
== END 2024-06-25 07:52 | disposition home or self-care (01) ==
LOC: ANHIMG 07:53
PROVIDERS: PCP Registered Nurse; Visit Provider Psychiatry & Neurology Neurology
DX: G35 Multiple sclerosis (principal); M47.894 Other spondylosis, thoracic region; R90.82 White matter disease, unspecified
CPT/HCPCS: 70553; 72156; 72157; A9577

== ENCOUNTER 2024-11-04 12:26 | Outpatient (CLI) | payer OTHER, SELFPAY ==
--- NOTE | ~2024-11-04 | MR_ITS ---
MRI of the lumbar spine Clinical History: Leg tremor, weakness Technique: Axial T2-weighted images, and sagittal T1-weighted, T2-weighted, and T2 fat-sat images wer e acquired. Findings: There is no fracture or subluxation of the lumbar spine. Vertebral bodies maintain normal h eight and alignment. No bone marrow signal abnormality seen. At L1-L2, L2-L3, the intervertebral discs are normal in signal and position. No disc bulge or herniat ion. No spinal canal stenosis or neural foraminal narrowing. At L3-L4 and L4-L5, there are minimal disc bulges and mild facet arthropathy. No central canal stenos is or neural foraminal narrowing at these levels. At L5-S1, there is minimal disc bulge with mild to moderate facet arthropathy. No central canal steno sis or neural foraminal narrowing. Paravertebral soft tissues are unremarkable. Impression: Mild degenerative spondylosis in the lumbar spine, as above. Reviewed, dictated and finalized at [facility]. Impression: Mild degenerative spondylosis in the lumbar spine, as above.
--- NOTE | ~2024-11-04 | MR_ITS ---
MRI of the thoracic spine Clinical History: Leg trauma, weakness Technique: Axial T2-weighted and gradient images, and sagittal T1-weighted, T2-weighted, and STIR emelia ges were acquired. Findings: There is no fracture or subluxation of the thoracic spine. Vertebral bodies maintain normal height and alignment. No bone marrow signal abnormality seen. No disc bulge or herniation seen in the thoracic spine. No spinal canal stenosis or cord compression identified. Neural foramina are preserved throughout the thoracic spine. No abnormal signal seen in the spinal cord. Paravertebral soft tissues are unremarkable. IMPRESSION: Unremarkable exam. Reviewed, dictated and finalized at location . IMPRESSION: Unremarkable exam.
--- NOTE | ~2024-11-04 | MR_ITS ---
MRI of the cervical spine Clinical History: Weakness, neck pain Technique: Axial T2-weighted and gradient images, and sagittal T1-weighted, T2-weighted, and STIR emelia ges were acquired. COMPARISON: 06/25/2024 Findings: No fracture identified. Stable grade 1 retrolisthesis of C5 over C6. Stable osseous alignme nt overall. No suspicious bone marrow signal abnormality. At C2-C3 and C3-C4, there is no significant disc bulge or herniation. There is minimal facet arthropa thy results. No spinal canal stenosis, cord compression, or neural foraminal narrowing at these level s. At C4-C5, there is minimal disc bulge. No spinal canal stenosis, cord compression, or neural foramina l narrowing. At C5-C6, there is disc osteophyte complex. There is mild canal stenosis without rolanda cord compressi on. There is bilateral neural foraminal narrowing. At C6-C7, there is no significant disc bulge or herniation. No spinal canal stenosis, cord compressio n, or neural foraminal narrowing. There is mild increased signal in the cord at the C4 level on STIR images. Paravertebral soft tissues are unremarkable. Impression: Moderate degenerative spondylosis, particularly at C5-C6, similar to prior exam. Suggestion of minimal increased T2 hyperintense signal in the cord at the C4 level on STIR images. Th is could reflect evolving or progressing demyelinating lesion, though no no definite corresponding si gnal evident on axial T2 images. Reviewed, dictated and finalized at [facility]. Impression: Moderate degenerative spondylosis, particularly at C5-C6, similar to prior exam . Suggestion of minimal increased T2 hyperintense signal in the cord at the C4 le nicho on STIR images. This could reflect evolving or progressing demyelinating le maite, though no no definite corresponding signal evident on axial T2 images.
--- OUTSIDE RECORDS SUMMARY | 2024-11-04 14:22 | XMS_ITS | Clinical Summary ---
Author Organization [facility] Address [address] Attn: Epic Prelude [facility]T [facility] [place] [address] Care Team Providers Care Financial Services Specialist Name Role Phone Unavailable Primary Care Provider Unavailabl e Encounters Date Type Department Care Team Description 10/21/2024 Abstract [facility] Neurology [facility] [address] [address] [place] [address] Provider, Abstract from Last 3 Months Social History Tobacco Use Types Packs/Day Years Used Date Smoking Tobacco: Never Assessed Comments Unknown Sex and Gender Information Value Date Recorded Sex Assigned at Not on file Legal 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
--- OUTSIDE RECORDS SUMMARY | 2024-11-04 14:22 | XMS_ITS | Encounter Summary ---
Author Organization [facility] Address [address] [place] [address] Care Team Providers Care Food Cooking Machine Operator Name Role Phone Unavailable Primary Care Provider Unavailabl e Encounter Details Date Type Department Care Team (Late st Contact Info) Description 11/01/2003 Outpatient Historical [facility] Maternal and Ground Floor [facility] [address] [facility] [address] [facility] [place] [address] Elen Coyle MD [address] [place] [address] Social History Tobacco Use Types Packs/Day Years Used Date Smoking Tobacco: Never Assessed Comments Unknown Sex and Gender Information Value Date Recorded Sex Assigned at Not on file Legal Sex Female 3:06 AM VERIFY REP Gender Identity Not on file Sexual Orientation Not on file documented as of this encounter Plan of Treatment Not on file documented as of this encounter Visit Diagnoses Not on filedocumented in this encounter
--- OUTSIDE RECORDS SUMMARY | 2024-11-04 14:22 | XMS_ITS | Clinical Summary ---
Author Organization [facility] Address [address] [place] [place] [address] Care Team Providers Care Rec Therapist Name Role Phone Unknown, Provider Primary Care Provider Unavaila ble Source Comments [facility],non-owned Affiliates and Associated Physician Practices is amultiple site organization consisting of ambulatory clinics and hospital sitesin [place], [place], [place] and [place]. This disclosure is being madepursuant to the Care Everywhere program and may not contain all information available regarding this patient. Last updated 18.[employer] [facility] Allergies No known active allergies Medications * Be aware that medications may not be up to date on this document. Alwaysverify current medications with the patient. buPROPion XL 24hr (WELLBUTRIN XL) 150 MG tablet Take 150 mg by mouth once daily Active Social History Tobacco Use Types Packs/Day Years Used Date Smoking Tobacco: Every Day Smokeless Tobacco: Never Comments No Sex and Gender Information Value Date Recorded Sex Assigned at Not on file Legal Sex Female 3:43 PM CDT Gender Identity Not on file Sexual Orientation Not on file Last Filed Vital Signs Vital Sign Reading Time Taken Comments Blood Pressure 110/72 05/09/2016 4:25 PM PROGRAMMING ENGINEER Pulse 100 09/08/2017 1:56 PM CDT Temperature 36.9 C (98.4 F) 09/08/2017 1:56 PM CDT Respiratory Rate 17 09/08/2017 1:56 PM CDT Oxygen Saturation 98% 09/08/2017 1:56 PM CDT Inhaled Oxygen Concentration - - Weight 68 kg (150 lb) 09/08/2017 1:56 PM CDT Height 160 cm (5' 3) 09/08/2017 1:56 PM CDT Body Mass Index 26.57 09/08/2017 1:56 PM CDT Plan of Treatment Health Maintenance Due Date Last Done Comments LIPID TESTING 1979 MAMMOGRAM 1979 HIV SCREENING 12/19/1994 HEPATITIS C SCREENING 12/15/1997 DTAP/TDAP/TD VACCINES (1 - Tdap) 12/19/1998 HEPATITIS B VACCINE (1 of 3 - 19+ 3-dose series) 12/19/1998 COVID-19 VACCINE (1 - 2023-2 5 season) 2024 DEPRESSION SCREENING 05/27/2024 INFLUENZA VACCINE (Season Ended) 2025 ZOSTER VACCINE (1 of 2) 12/19/2029 HIB VACCINE Aged Out No longer eligi ble based on patient's age to complete this topic HPV VACCINE Aged Out No longer eligi ble based on patient's age to complete this topic MENINGOCOCCAL (Group B) VACC INE SHARED DECISION-MAKING Aged Out No longer eligibl e based on patient's age to complete this topic MENINGOCOCCAL GROUPS A/C/Y/W VACCINE Aged Out No longer eligible b ased on patient's age to complete this topic PNEUMOCOCCAL VACCINE Aged Out No long er eligible based on patient's age to complete this topic Insurance [facility] Care Teams Rec Therapist Relationship Specialty Start Date End Date Unknown, Provider PCP - General 05/09/16
--- OUTSIDE RECORDS SUMMARY | 2024-11-04 14:22 | XMS_ITS | Encounter Summary ---
Author Organization [facility] Address 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
--- OUTSIDE RECORDS SUMMARY | 2024-11-04 14:22 | XMS_ITS | Encounter Summary ---
Author Organization [facility] Address [address] [place] [address] Care Team Providers Care Tab Cutting Machine Operator Name Role Phone Unavailable Primary Care Provider Unavailabl e Encounter Details Date Type Department Care Team (Late st Contact Info) Description 11/01/2003 Outpatient Historical [facility] Maternal and Ground Floor [facility] [address] [place] [address] Elen Coyle MD [address] [place] [address] Social History Tobacco Use Types Packs/Day Years Used Date Smoking Tobacco: Never Assessed Comments Unknown Sex and Gender Information Value Date Recorded Sex Assigned at Not on file Legal Sex Female 3:06 AM HOSPITAL AIDE Gender Identity Not on file Sexual Orientation Not on file documented as of this encounter Plan of Treatment Not on file documented as of this encounter Visit Diagnoses Not on filedocumented in this encounter
--- OUTSIDE RECORDS SUMMARY | 2024-11-04 14:22 | XMS_ITS | Encounter Summary ---
Author Organization [facility] Address [address] [place] [address] Care Team Providers Care Suspender Cutter Name Role Phone Unavailable Primary Care Provider [...] on file Legal Sex Female 3:06 AM METROLOGY SPECIALIST Gender Identity Not on file Sexual Orientation Not on file documented as of this encounter Plan of Treatment Not on file documented as of this encounter Visit Diagnoses Diagnosis Other current maternal conditions classifiable elsewhere, antepartum- Primary documented in this encounter
--- OUTSIDE RECORDS SUMMARY | 2024-11-04 14:22 | XMS_ITS | Encounter Summary ---
Author Organization [facility] Address [address] [place] [address] Care Team Providers Care Physical Medicine Specialist Name Role Phone Unavailable Primary Care Provider Unavailabl e Encounter Details Date Type Department Care Team (Latest Contact Info) Description 11/01/2003 Outpatient Historical [facility] [place] [address] [place] [address] PREG COMPL NEC-ANTEPART (Primary Dx) Social History Tobacco Use Types Packs/Day Years Used Date Smoking Tobacco: Never Assessed Comments Unknown Sex and Gender Information Value Date Recorded Sex Assigned at Not on file Legal Sex Female 3:06 AM PROTOTYPE CARPENTER Gender Identity Not on file Sexual Orientation Not on file documented as of this encounter Plan of Treatment Not on file documented as of this encounter Visit Diagnoses Diagnosis Other specified complication, antepartum(646.83)- Primary Other specified complication, antepartum documented in this encounter
--- OUTSIDE RECORDS SUMMARY | 2024-11-04 14:22 | XMS_ITS | CONTINUITY OF CARE DOCUMENT ---
Author Name dominick tan Address Unknown Organization [facility] Address [address] [place] [address] Phone [phone] Care Team Providers Care Bull Ladle Tender Name Role Phone dominick tan Unavailable Unavailable INSURANCE PROVIDERS Payer name Policy type / Coverage type Ella red green party ID [facility] [facility] Medicaid 1 [id number]
--- OUTSIDE RECORDS SUMMARY | 2024-11-04 14:22 | XMS_ITS | Encounter Summary ---
Author Organization [facility] Address 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
== END 2024-11-04 12:27 | disposition home or self-care (01) ==
PROVIDERS: PCP Registered Nurse; Visit Provider Registered Nurse
DX: M47.816 Spondylosis without myelopathy or radiculopathy, lumbar region (principal); M47.812 Spondylosis without myelopathy or radiculopathy, cervical region; M54.2 Cervicalgia; G35 Multiple sclerosis
CPT/HCPCS: 72141; 72146; 72148